=== PATIENT | female | born 1950 | race Caucasian/White ===

== ENCOUNTER 2017-05-25 08:07 | Emergency (ER) | payer OTHER, BC ==
[~2017-05-25] VITALS: Ht 152.4 cm; Wt 108.9 kg
[~2017-05-25 08:07] MED LIST: CARV12.548 PO; GLIP10TA11 PO; GLYB2.5T4 PO; HYDR-1189 PO
[2017-05-25 08:12] VITALS: BP_SYST 183
[2017-05-25 08:45] LABS: BILIRUBIN,URINE NEGATIVE (NEGATIVE); BLOOD, URINE 1+ (NEGATIVE); CLARITY/URINE CLEAR (CLEAR); COLOR,URINE YELLOW (YELLOW); GLUCOSE,URINE 3+ (NEGATIVE); KETONES,URINE NEGATIVE (NEGATIVE); LEUKOCYTE ESTERASE ,URINE NEGATIVE (NEGATIVE); NITRITE, URINE NEGATIVE (NEGATIVE); PROTEIN URINE 2+ (NEGATIVE); UROBILINOGEN,URINE 0.2 (0.2-1.0)
[2017-05-25 09:05] LABS: BACTERIA,URINE FEW /HPF (None Seen); MUCUS,URINE None Seen /LPF (None Seen); RBC,URINE 0-3 /HPF (0-3); WBC,URINE 0-3 /HPF (0-3)
[2017-05-25] MEDS ORDERED: FLUCONAZOLE 100 MG TABLET (DIFLUCAN) PO ONE (09:30)
[2017-05-25 09:43] VITALS: BP_SYST 155
== END 2017-05-25 09:43 | disposition home or self-care (01) ==
LOC: SED 08:07
DX: H11.31 Conjunctival hemorrhage, right eye (principal); N76.0 Acute vaginitis; K59.00 Constipation, unspecified; E11.9 Type 2 diabetes mellitus without complications; I10 Essential (primary) hypertension; Z91.041 Radiographic dye allergy status
CPT/HCPCS: 74000-TC; 81000-TC; 99285

== ENCOUNTER 2017-11-29 09:31 | Outpatient (CLI) | payer OTHER, BC ==
[2017-11-29 10:19] LABS: BASOPHILS # (AUTO) 0.1 K/uL (0.0-0.2); BASOPHILS % (AUTO) 0.8 % (0.0-2.0); EOSINOPHILS # (AUTO) 0.2 K/uL (0.0-0.4); EOSINOPHILS % (AUTO) 3.1 % (0.0-4.0); HEMATOCRIT 44.2 % (36-48); HEMOGLOBIN 14.5 g/dL (12.0-16.0); LYMPHOCYTES # (AUTO) 1.4 K/uL (1.0-5.5); LYMPHOCYTES % (AUTO) 22.4 % (20.5-51.5); MEAN CORPUSCULAR HEMOGLOBIN 28 pg (27-31); MEAN CORPUSCULAR HGB CONC 33 % (32-36); MEAN CORPUSCULAR VOLUME 85 fL (79.0-98.0); MONOCYTES # (AUTO) 0.5 K/uL (0.0-1.0); MONOCYTES % (AUTO) 7.4 % (1.7-9.3); NEUTROPHILS # (AUTO) 4.3 K/uL (1.8-7.7); NEUTROPHILS % (AUTO) 66.3 % (40.0-70.0); PLATELET COUNT (AUTO) 213 K/uL (130-430); RED BLOOD CELL COUNT(AUTO) 5.21 MIL/uL (4.2-6.2); RED CELL DISTRIBUTION WIDTH 12.8 % (9.0-15.0); WHITE BLOOD COUNT (AUTO) 6.5 K/uL (4.8-10.8)
[2017-11-29 10:36] LABS: BILIRUBIN,URINE NEGATIVE (NEGATIVE); BLOOD, URINE 1+ (NEGATIVE); CLARITY/URINE CLEAR (CLEAR); COLOR,URINE YELLOW (YELLOW); GLUCOSE,URINE 3+ (NEGATIVE); KETONES,URINE NEGATIVE (NEGATIVE); LEUKOCYTE ESTERASE ,URINE NEGATIVE (NEGATIVE); NITRITE, URINE NEGATIVE (NEGATIVE); PROTEIN URINE 3+ (NEGATIVE); UROBILINOGEN,URINE 0.2 (0.2-1.0)
[2017-11-29 10:49] LABS: ALBUMIN 2.7 g/dL (3.4-4.8); CALCIUM 10.2 mg/dL (8.4-11.0); CREATININE 0.79 mg/dL (0.55-1.30); POTASSIUM 3.8 mmol/L (3.5-5.1); THYROID STIMULATING HORMONE 1.73 uIu/mL (0.34-4.82); TOTAL BILIRUBIN 0.3 mg/dL (0.0-1.0)
[2017-11-29 10:54] LABS: RBC,URINE 0-3 /HPF (0-3)
[2017-11-29 10:55] LABS: BACTERIA,URINE FEW /HPF (None Seen); MUCUS,URINE None Seen /LPF (None Seen)
[2017-12-01 14:31] LABS: CREATININE, URINE 83.4 mg/dL; MICROALBUMIN URINE RANDOM 2910.9 ug/ml (NOT ESTABLISHED); MICROALBUMIN/CREAT RATIO, UR 3490.3 MG/G CRE (0.0-30.0)
== END 2017-11-29 20:00 | disposition home or self-care (01) ==
LOC: SLB 09:31
PROVIDERS: ATTEND Internal Medicine
DX: I10 Essential (primary) hypertension (principal); E78.5 Hyperlipidemia, unspecified; E11.65 Type 2 diabetes mellitus with hyperglycemia; E66.01 Morbid (severe) obesity due to excess calories; N39.0 Urinary tract infection, site not specified
CPT/HCPCS: 36415; 80053; 80061; 81000-TC; 82043; 82570; 83036; 84443-TC; 85025; 87086

== ENCOUNTER 2019-08-29 11:03 | Emergency (ER) | payer OTHER, MEDICARE ==
[~2019-08-29] VITALS: Ht 152.4 cm; Wt 95.3 kg
[2019-08-29 11:12] VITALS: BP_SYST 166
--- NOTE | 2019-08-29 11:18 | NUR ---
Patient to ER bed 4 to gown for evaluation. Side rails up. Report given to JESS Painting.
--- NOTE | 2019-08-29 11:43 | NUR ---
Patient is awake, alert, and oriented x4. Patient reports that she took immodium last night for diarrhea, this morning she woke up with puffy eyes. Patient presents with swelling around both eyes, no discharge, patient denies any other issues at this time. Addendum: 08/29/19 at 1145 by [email or web address] Patient wears corrective lens at home, she is not wearing them at this time.
--- NOTE | 2019-08-29 12:15 | NUR ---
ER Dr. Humphries at bedside examining patient.
[2019-08-29] MEDS ORDERED: NACL 0.9% 1,000 ML IV ONE ×2 (12:20→12:30)
[2019-08-29] MEDS ORDERED: methylPREDNISolone SOD SUCC/PF 62.5 MG/ML VIAL IVP ONE (12:30)
[2019-08-29 12:54] LABS: BASOPHILS % (AUTO) 0.5 % (0.0-2.0); EOSINOPHILS # (AUTO) 0.2 K/uL (0.0-0.4); EOSINOPHILS % (AUTO) 2.2 % (0.0-4.0); HEMATOCRIT 44.2 % (36-48); HEMOGLOBIN 15.4 g/dL (12.0-16.0); LYMPHOCYTES # (AUTO) 1.6 K/uL (1.0-5.5); LYMPHOCYTES % (AUTO) 19.9 % (20.5-51.5); MEAN CORPUSCULAR HEMOGLOBIN 30 pg (27-31); MEAN CORPUSCULAR HGB CONC 35 % (32-36); MEAN CORPUSCULAR VOLUME 85 fL (79.0-98.0); MONOCYTES # (AUTO) 0.5 K/uL (0.0-1.0); MONOCYTES % (AUTO) 6.1 % (1.7-9.3); NEUTROPHILS # (AUTO) 5.7 K/uL (1.8-7.7); NEUTROPHILS % (AUTO) 71.3 % (40.0-70.0); PLATELET COUNT (AUTO) 228 K/uL (130-430); RED BLOOD CELL COUNT(AUTO) 5.22 MIL/uL (4.2-6.2); RED CELL DISTRIBUTION WIDTH 13.4 % (9.0-15.0)
[2019-08-29 12:57] LABS: BILIRUBIN,URINE NEGATIVE (NEGATIVE); BLOOD, URINE 2+ (NEGATIVE); CLARITY/URINE CLEAR (CLEAR); COLOR,URINE YELLOW (YELLOW); GLUCOSE,URINE 3+ (NEGATIVE); KETONES,URINE NEGATIVE (NEGATIVE); LEUKOCYTE ESTERASE ,URINE NEGATIVE (NEGATIVE); NITRITE, URINE NEGATIVE (NEGATIVE); PH,URINE 6.5 (5.0-8.0); PROTEIN URINE 3+ (NEGATIVE); UROBILINOGEN,URINE 0.2 (0.2-1.0)
[2019-08-29 12:59] LABS: BACTERIA,URINE FEW /HPF (None Seen); HYALINE CASTS, URINE 0-10 /LPF (None Seen)
--- NOTE | 2019-08-29 13:00 | NUR ---
Patient unable to provide stool sample at this time.
[2019-08-29 13:04] LABS: CALCIUM 9.7 mg/dL (8.4-11.0); CREATININE 1.33 mg/dL (0.55-1.30)
[2019-08-29 13:07] LABS: INR 0.9 (0.8-1.2); PROTHROMBIN TIME 9.3 SECS (9.5-12.5)
[2019-08-29 13:10] LABS: ALBUMIN 2.1 g/dL (3.4-4.8); TOTAL BILIRUBIN 0.4 mg/dL (0.0-1.0)
[2019-08-29] MEDS ORDERED: POTASSIUM CHLORIDE 20 MEQ/PKT PACKET PO ONE (14:45)
[2019-08-29 15:42] VITALS: BP_SYST 148
--- NOTE | 2019-08-29 15:42 | NUR ---
Patient given written and verbal discharge instructions and verbalizes understanding. ER MD discussed with patient the results and treatment provided. Patient in stable condition. ID arm band removed. IV catheter removed intact and dressing applied, no active bleeding. Rx of prednisone, lomotil given. Patient educated on pain management and to follow up with PMD. Pain Scale 0/10. Opportunity for questions provided and answered. Medication side effect fact sheet provided.
== END 2019-08-29 15:42 | disposition home or self-care (01) ==
LOC: SED 11:03
DX: T78.3XXA Angioneurotic edema, initial encounter (principal); E11.9 Type 2 diabetes mellitus without complications; K52.9 Noninfective gastroenteritis and colitis, unspecified; Z98.890 Other specified postprocedural states; Z79.899 Other long term (current) drug therapy; Z91.041 Radiographic dye allergy status
CPT/HCPCS: 36415; 80053; 81000; 82150; 83605; 83690; 85025; 85610; 85730; 87040; 96361; 96374; 99283; J2930; J7030

== ENCOUNTER 2020-07-25 09:58 | Outpatient (CLI) | payer OTHER, MEDICARE | END 2020-07-25 20:19 | disposition home or self-care (01) | LOC: SUS 09:58 | PROVIDERS: ATTEND Internal Medicine | DX: R05 Cough (principal) | CPT/HCPCS: 71046-TC; 76770 ==

== ENCOUNTER 2020-08-02 19:53 | Inpatient (IN) | payer OTHER, MEDICARE, SELFPAY ==
[~2020-08-02] VITALS: Ht 152.4 cm; Wt 100.9 kg
[2020-08-02 20:25] VITALS: BP_SYST 203
--- NOTE | 2020-08-02 20:25 | NUR ---
Patient triaged and placed in waiting room. VSS and patient appears in no acute distress at this time. Accompanied by SELF, awaiting available bed, and MD notified of need for MSE.
--- NOTE | 2020-08-02 20:30 | NUR ---
ER at bedside examining patient.
--- NOTE | 2020-08-02 20:31 | NUR ---
Pt presents to the ED for localized abdominal pain x 2 day. Pt reports intermittent SOB and leg swelling. Pt able to speak full sentences. Denies cp, fever chills and cough.
[2020-08-02 21:17] LABS: BASOPHILS # (AUTO) 0.1 K/uL (0.0-0.2); BASOPHILS % (AUTO) 1.9 % (0.0-2.0); EOSINOPHILS # (AUTO) 0.4 K/uL (0.0-0.4); EOSINOPHILS % (AUTO) 6.3 % (0.0-4.0); HEMATOCRIT 33.8 % (36-48); HEMOGLOBIN 11.7 g/dL (12.0-16.0); LYMPHOCYTES # (AUTO) 0.5 K/uL (1.0-5.5); LYMPHOCYTES % (AUTO) 8.4 % (20.5-51.5); MEAN CORPUSCULAR HEMOGLOBIN 30 pg (27-31); MEAN CORPUSCULAR HGB CONC 35 % (32-36); MEAN CORPUSCULAR VOLUME 86 fL (79.0-98.0); MONOCYTES # (AUTO) 0.3 K/uL (0.0-1.0); NEUTROPHILS # (AUTO) 5.1 K/uL (1.8-7.7); NEUTROPHILS % (AUTO) 78.4 % (40.0-70.0); PLATELET COUNT (AUTO) 178 K/uL (130-430); RED BLOOD CELL COUNT(AUTO) 3.94 MIL/uL (4.2-6.2); RED CELL DISTRIBUTION WIDTH 14.2 % (9.0-15.0); WHITE BLOOD COUNT (AUTO) 6.4 K/uL (4.8-10.8)
[2020-08-02 21:33] LABS: ANION GAP 6 (5-15); CALCIUM 8.3 mg/dL (8.4-11.0); CHLORIDE 111 mmol/L (98-107); CREATININE 3.19 mg/dL (0.55-1.30); GLUCOSE 130 mg/dL (70-99); POTASSIUM 3.7 mmol/L (3.5-5.1); SODIUM SERUM 143 mmol/L (136-145); UREA NITROGEN, BLOOD 40 mg/dL (8-21)
[2020-08-02 21:36] LABS: GFR AFRICAN AMERICAN 19 mL/min (>90)
[2020-08-02 21:43] LABS: ALANINE AMINOTRANSFERASE 53 U/L (12-78); ASPARTATE AMINOTRANSFERASE 61 U/L (10-37); BILIRUBIN,DIRECT 0.2 mg/dL (0.0-0.3); LIPASE 179 U/L (73-393); TOTAL BILIRUBIN 0.3 mg/dL (0.0-1.0)
[2020-08-02 22:00] LABS: BILIRUBIN,URINE NEGATIVE (NEGATIVE); BLOOD, URINE 2+ (NEGATIVE); CLARITY/URINE CLEAR (CLEAR); COLOR,URINE YELLOW (YELLOW); GLUCOSE,URINE 1+ (NEGATIVE); KETONES,URINE NEGATIVE (NEGATIVE); LEUKOCYTE ESTERASE ,URINE NEGATIVE (NEGATIVE); NITRITE, URINE NEGATIVE (NEGATIVE); PROTEIN URINE 3+ (NEGATIVE); UROBILINOGEN,URINE 0.2 (0.2-1.0)
[2020-08-02 22:22] LABS: BACTERIA,URINE FEW /HPF (None Seen); RBC,URINE 0-3 /HPF (0-3); WBC,URINE 0-3 /HPF (0-3)
[2020-08-02] MEDS ORDERED: NITROGLYCERIN 1 INCH (GM) OINT. TP ONE ×2 (23:15→23:30)
[2020-08-02] MEDS ORDERED: FUROSEMIDE 40 MG/4 ML VIAL IVP ONE (23:15)
--- NOTE | 2020-08-02 23:50 | NUR ---
Dr Dotson at [facility] evaluating patient.
[2020-08-03] MEDS ORDERED: DEXTROSE 50% JECT 50 ML DISP.SYRIN IVP PRN
[2020-08-03] MEDS ORDERED: NALOXONE HCL 0.4 MG/ML AMP (NARCAN) IVP PRN
[2020-08-03] MEDS ORDERED: HYDROcodone/ACETAMIN 5-325 MG TAB (NORCO/ VICODIN) PO SCH
[2020-08-03] MEDS ORDERED: ONDANSETRON HCL 4 MG/2 ML VIAL IVP PRN (00:15)
[2020-08-03] MEDS ORDERED: traMADol HCL HCL 50 MG TABLET (ULTRAM) PO PRN (00:15)
[2020-08-03] MEDS ORDERED: ACETAMINOPHEN 325 MG TABLET PO PRN (00:15)
--- NOTE | 2020-08-03 00:20 | NUR ---
Pt ambulating, requesting to use bathroom.
--- NOTE | 2020-08-03 00:39 | NUR ---
COVID SWAB SENT TO LAB
[2020-08-03] MEDS ORDERED: CARVEDILOL 6.25 MG TABLET (COREG) ONE (00:54)
[2020-08-03] MEDS: CARVEDILOL 12.5 MG TABLET (COREG) PO SCH ×3 (00:59→22:27)
[2020-08-03] MEDS ORDERED: ASPI-1393 PO (01:12)
[2020-08-03] MEDS ORDERED: ACYC800T PO (01:18)
[2020-08-03] MEDS ORDERED: PRO40 PO (01:18)
[2020-08-03] MEDS ORDERED: GABA-529 PO (01:20)
[2020-08-03] MEDS ORDERED: DOXA4TAB2 PO (01:21)
[2020-08-03] MEDS ORDERED: ATOR20TA64 PO (01:22)
[2020-08-03] MEDS ORDERED: L.RH1CAP PO (01:22)
[2020-08-03 02:20] VITALS: BP_SYST 206
--- NOTE | 2020-08-03 02:39 | NUR ---
ADMISSION Received patient from ER, aox4, ambulatory with steady gait, no sob noted, vitals stable. BP elevated, will recheck shortly. IV line to left ac intact and patent, saline locked, plan of care discussed with patient. Verbalized understanding, compliant. Oriented to room and call light. Fall and safety measures in place.
[2020-08-03] MEDS ORDERED: FLU VACC QS2020-21(65UP)/PF 0.7 ML/SYRINGE I.M. PRN (02:45)
--- NOTE | 2020-08-03 04:16 | NUR ---
RN ROUNDS Patient sleeping, respirations even and unlabored, on room air, call light within reach, fall and safety measures in place.
--- NOTE | 2020-08-03 05:19 | NUR ---
CONSULT: CONSULT CALLED FOR DR. RICE I SPOKE WITH TANOBIA SUPERVISOR LIQUID YEAST #22 REQUESTING CONSULT: DR. FLORENCE REASON FOR CONSULT: CHF CONSULTATION PHONE NUMBER: [phone]
--- NOTE | 2020-08-03 05:24 | NUR ---
CONSULT: CONSULT CALLED FOR DR. JESS RICH IS PARISH WORKER AT THIS MOMENT I SPOKE WITH ULICES OBRIEN REASON FOR CONSULT: CKD REQUESTING CONSULT: DR. FLORENCE COMMERCIAL PROPERTY MANAGER PHONE NUMBER: [phone]
[2020-08-03 06:42] LABS: BASOPHILS # (AUTO) 0.1 K/uL (0.0-0.2); BASOPHILS % (AUTO) 0.7 % (0.0-2.0); EOSINOPHILS # (AUTO) 0.4 K/uL (0.0-0.4); EOSINOPHILS % (AUTO) 5.1 % (0.0-4.0); HEMATOCRIT 30.1 % (36-48); HEMOGLOBIN 10.4 g/dL (12.0-16.0); LYMPHOCYTES # (AUTO) 1.3 K/uL (1.0-5.5); LYMPHOCYTES % (AUTO) 15.9 % (20.5-51.5); MEAN CORPUSCULAR HEMOGLOBIN 30 pg (27-31); MEAN CORPUSCULAR HGB CONC 35 % (32-36); MEAN CORPUSCULAR VOLUME 86 fL (79.0-98.0); MONOCYTES # (AUTO) 0.7 K/uL (0.0-1.0); MONOCYTES % (AUTO) 8.3 % (1.7-9.3); NEUTROPHILS # (AUTO) 5.5 K/uL (1.8-7.7); PLATELET COUNT (AUTO) 162 K/uL (130-430); WHITE BLOOD COUNT (AUTO) 7.9 K/uL (4.8-10.8)
--- NOTE | 2020-08-03 06:42 | NUR ---
RN ROUNDS Patient awake, watching tv, denies any pain or discomfort at this time, blood sugar check this am of 91. IV line to left ac intact and patent, saline locked. Patient needs attended to. Call light within reach, will monitor until report given to am nurse.
[2020-08-03 07:24] LABS: ALANINE AMINOTRANSFERASE 45 U/L (12-78); ALBUMIN 1.7 g/dL (3.4-4.8); ANION GAP 8 (5-15); ASPARTATE AMINOTRANSFERASE 47 U/L (10-37); CALCIUM 8.2 mg/dL (8.4-11.0); CHLORIDE 111 mmol/L (98-107); CREATININE 3.13 mg/dL (0.55-1.30); FREE T4 (FREE THYROXINE) 1.1 ng/dl (0.8-1.5); GLUCOSE 90 mg/dL (70-99); PHOSPHORUS 4.7 mg/dL (2.7-4.5); POTASSIUM 3.6 mmol/L (3.5-5.1); SODIUM SERUM 143 mmol/L (136-145); THYROID STIMULATING HORMONE 2.98 uIu/mL (0.36-3.74); TOTAL BILIRUBIN 0.2 mg/dL (0.0-1.0); UREA NITROGEN, BLOOD 39 mg/dL (8-21)
[2020-08-03 07:26] LABS: GFR AFRICAN AMERICAN 19 mL/min (>90)
[2020-08-03 08:00] VITALS: BP_SYST 194
--- NOTE | 2020-08-03 08:00 | NUR ---
OPENING NOTES PATIENT ALERT AND ORIENT, VERY PLEASANT TO THE STAFF, WITH SWOLLEN BOTH LEGS, REDNESS DUE TO HISTORY OF SHINGLES LAST JANUARY. WITH ELEVATED BLOOD PRESSURE 190/90, ASYMPTOMATIC, WITH CLONIDINE ORDERED.
[2020-08-03 08:13] LABS: CHOLESTEROL 142 mg/dL (<200); HDL CHOLESTEROL 63 mg/dL (>55); LDL CHOLESTEROL 65 mg/dL (<100); TRIGLYCERIDES 88 mg/dL (30-150)
[2020-08-03] MEDS ORDERED: FUROSEMIDE 40 MG TABLET PO SCH (09:00)
[2020-08-03] MEDS ORDERED: CARVEDILOL 12.5 MG TABLET (COREG) ONE (09:05)
[2020-08-03] MEDS: PANTOPRAZOLE SODIUM 40 MG/VIAL (PROTONIX) IVP SCH ×2 (09:09→22:26)
[2020-08-03] MEDS: GABAPENTIN 100 MG CAPSULE PO SCH ×3 (09:12→22:26)
[2020-08-03] MEDS: cloNIDine HCL 0.1 MG TABLET PO PRN ×2 (09:12→17:02)
--- NOTE | 2020-08-03 10:00 | NUR ---
ON 24 HOUR URINE COLLECTION ON 24 HR URINE COLLECTION, URINE COLLECTED, I/0 ACCURATELY.
[2020-08-03 11:36] VITALS: BP_SYST 111
--- NOTE | 2020-08-03 12:00 | NUR ---
BP RE CHECKED 111/55, PATIENT RESTING, MOVED TO 106A CLOSES TO THE BATHROOM.
[2020-08-03 15:44] VITALS: BP_SYST 162
[2020-08-03] MEDS ORDERED: NEPHROVITE, (FOLIC ACID/VITAMIN B COMP W-C 1 TAB) PO ONE (17:00)
--- NOTE | 2020-08-03 17:00 | NUR ---
BP WAS ELEVATED BP 200/110, ASYMPTOMATIC, CLONIDINE GIVEN, DR FLORENCE WAS HERE AND MADE AWARE ABOUT PT'S BP, WILL INCREASE BP MEDS. ABLE TO TALKED TO THE FAMILY VIA PHONE AND GAVE UPDATE ABOUT THE PATIENT.
--- NOTE | 2020-08-03 18:00 | NUR ---
NOTES TOOK DINNER, NO N/V, CONTINUE ON 24 HR URINE COLLECTION DUE AT 2AM, WILL INFORMED INCOMING NURSE ABOUT PT'S BP FOR CONTINOUS MONITORING.
[2020-08-03 19:55] VITALS: BP_SYST 167
--- NOTE | 2020-08-03 20:00 | NUR ---
INITIAL NOTES: PT IS ALERT AND ORIENTED , NOT IN ANY ACUTE DISTRESS ;BP IS ELEVATED , PT RECEIVED CLONIDINE EARLIER ; WILL RECHECK LATER AND WILL GIVE DUE MEDS ; ABLE TO AMBULATE WELL WITH STEADY GAIT ; IV TO L AC , NO S/S OF ANY INFILTRATION NOTICED ; ASSESSMENT DONE ; BED IN LOW AND LOCK POSITION ; CALL DRUMMOND IN REACH ; ENCOURAGED PT TO CALL FOR ANY ASSIST ; PTS URINE IS COLLECTING FOR 24 HR URINE . WILL COLLECT AND WILL FINISH IT BY 0200 .
[2020-08-03] MEDS ORDERED: CARVEDILOL 12.5 MG TABLET (COREG) PO SCH (21:00)
[2020-08-03] MEDS ORDERED: FUROSEMIDE 40 MG TABLET ONE (21:58)
[2020-08-03 22:00] VITALS: BP_SYST 180
[2020-08-03] MEDS ORDERED: FUROSEMIDE 40 MG/4 ML VIAL IVP SCH (22:00)
--- NOTE | 2020-08-03 22:00 | NUR ---
MD ROUNDS: DR COLBERT MADE ROUNDS , NOTICED THAT ORDERED LASIX IV AND ALFORD CATH ; PT REFUSING ALFORD CATH , TRY TO EDUCATE PT ; PT SI STATING THAT DIDN'T TELL HER ANYTHING ; EXPLAINED TO HER WHY SHE NEEDS ALFORD CATH ; STILL PT IS REFUSING IT ; CALLED AND TALKED WITH DR COLBERT WHO WAS IN [facility] ; INFORMED MD THAT PT IS REFUSING ALFORD AND PTS 24 HR URINE WILL FINISH BY 0200. STATED THEN NO NEED TO INSERT ALFORD CATH; ALSO CLARIFIED LASIX ORDER ; STATED HE ORDERED LASIX IV 40 MG ; STATED OK TO GIVE COREG AND COZAAR ORDERED BY DR FLORENCE . NOTIFIED MD PTS BP .
[2020-08-03] MEDS: ENOXAPARIN SODIUM 30 MG/0.3 ML SYRINGE SUBCUT SCH (22:25)
[2020-08-03] MEDS: LOSARTAN POTASSIUM 50 MG TABLET (COZAAR) PO SCH (22:26)
[2020-08-03] MEDS: FUROSEMIDE 40 MG/4 ML VIAL IVP SCH (22:28)
--- NOTE | 2020-08-03 22:30 | NUR ---
MEDICATION ; DUE MEDS GIVEN PER ORDER ; PT IS COMFORTABLE ; NOT IN ANY ACUTE DISTRESS; WILL CONTINUE TO MONITOR .
--- NOTE | 2020-08-04 00:20 | NUR ---
RN NOTES: ASSISTED PT TO RESTROOM ; PT HAD SMALL BM ; ASSISTED PT BACK ; PT IS COMFORTABLE ; WILL CONTINUE TO MONITOR PT .
[2020-08-04 01:25] VITALS: BP_SYST 142
--- NOTE | 2020-08-04 02:00 | NUR ---
24 HR URINE; 24 HR URINE COLLECTED AND SENT TO LAB .
--- NOTE | 2020-08-04 03:51 | NUR ---
RN NOTES: PT IS SLEEPING , NOT IN ANY ACUTE DISTRESS; RESPIRATION IS EVEN AND NON LABORED ;WILL CONTINUE TO MONITOR PT .
--- NOTE | 2020-08-04 05:10 | NUR ---
RN NOTES: PT IS SLEEPING , NOT IN ANY ACUTE DISTRESS; RESPIRATION IS EVEN AND NON LABORED ;WILL CONTINUE TO MONITOR PT .
--- NOTE | 2020-08-04 06:10 | NUR ---
BS: BS 109 , NO INSULIN COVERAGE NEEDED ; PT IS COMFORTABLE ; ALL NEEDS ATTENDED ; ASSITED PT TO BSC ; PT VOIDED ; ASSISTED PT BACK TO BED
[2020-08-04 06:56] LABS: BASOPHILS % (AUTO) 0.4 % (0.0-2.0); EOSINOPHILS # (AUTO) 0.4 K/uL (0.0-0.4); EOSINOPHILS % (AUTO) 6.9 % (0.0-4.0); HEMATOCRIT 26.1 % (36-48); LYMPHOCYTES # (AUTO) 1.5 K/uL (1.0-5.5); LYMPHOCYTES % (AUTO) 28.4 % (20.5-51.5); MEAN CORPUSCULAR HEMOGLOBIN 30 pg (27-31); MEAN CORPUSCULAR HGB CONC 34 % (32-36); MEAN CORPUSCULAR VOLUME 86 fL (79.0-98.0); MONOCYTES # (AUTO) 0.4 K/uL (0.0-1.0); MONOCYTES % (AUTO) 7.2 % (1.7-9.3); NEUTROPHILS # (AUTO) 3.1 K/uL (1.8-7.7); NEUTROPHILS % (AUTO) 57.1 % (40.0-70.0); PLATELET COUNT (AUTO) 139 K/uL (130-430); RED BLOOD CELL COUNT(AUTO) 3.05 MIL/uL (4.2-6.2); RED CELL DISTRIBUTION WIDTH 14.7 % (9.0-15.0); WHITE BLOOD COUNT (AUTO) 5.4 K/uL (4.8-10.8)
--- NOTE | 2020-08-04 07:16 | NUR ---
CLOSING NOTES REPORT GIVEN TO RN, PT IS COMFORTABLE ; NOT IN ANY ACUTE DISTRESS; ALL NEEDS ATTENDED ; NOTIFIED RN ABOUT THE LOW URINE OUTPUT TO MONITOR .
[2020-08-04 07:26] LABS: CALCIUM 7.9 mg/dL (8.4-11.0); CREATININE 3.73 mg/dL (0.55-1.30); POTASSIUM 3.9 mmol/L (3.5-5.1)
[2020-08-04 07:35] LABS: TOTAL IRON BIND. CAPACITY 156 ug/dL (250-450)
[2020-08-04 08:00] VITALS: BP_SYST 179
--- NOTE | 2020-08-04 08:00 | NUR ---
OPENING NOTES PT BILATERAL LOWER LEGS STILL SWOLLEN, WITH REDNESS NOTED, UP BY PHYSICAL THERAPY, ASSISTED TO WALK USING A WALKER, PT EASILY GOT TIRED AFTER P.T. EVALUATION. STILL ON STRICT I/O. FOR CT SCAN OF THE CHEST TODAY.
--- NOTE | 2020-08-04 10:00 | NUR ---
NOTES PATIENT HAD ORAL, PERICARE AND PARTIAL SPONGE BATH, ELEVATED BOTH LEGS WHILE ON BED DUE TO EDEMA. DUE AM MEDS GIVEN.
[2020-08-04] MEDS ORDERED: FUROSEMIDE 40 MG/4 ML VIAL ONE (10:15)
[2020-08-04] MEDS: FUROSEMIDE 40 MG/4 ML VIAL IVP SCH (10:21)
[2020-08-04] MEDS: CARVEDILOL 12.5 MG TABLET (COREG) PO SCH ×2 (10:21→23:07)
[2020-08-04] MEDS: PANTOPRAZOLE SODIUM 40 MG/VIAL (PROTONIX) IVP SCH ×2 (10:21→23:08)
[2020-08-04] MEDS: LOSARTAN POTASSIUM 50 MG TABLET (COZAAR) PO SCH ×2 (10:22→23:07)
[2020-08-04] MEDS: GABAPENTIN 100 MG CAPSULE PO SCH ×3 (10:22→23:06)
[2020-08-04 11:30] VITALS: BP_SYST 169
--- NOTE | 2020-08-04 13:00 | NUR ---
SEEN BY DR FLORENCE SEEN BY DR FLORENCE, FOLLOW UP CT SCAN ORDERED FOR TODAY, MD MADE AWARE THAT BOTH LEGS ARE MORE SWOLLEN THAT YESTERDAY, CONTINUE ON LASIX.
[2020-08-04] MEDS ORDERED: EPOETIN ALFA 10,000 UNITS/ML VIAL SUBCUT ONE (13:30)
--- NOTE | 2020-08-04 15:15 | NUR ---
NOTES BACK FROM CT SCAN.
[2020-08-04] MEDS: NEPHROVITE, (FOLIC ACID/VITAMIN B COMP W-C 1 TAB) PO SCH (15:29)
[2020-08-04] MEDS: cloNIDine HCL 0.1 MG TABLET PO PRN ×2 (15:39→23:10)
[2020-08-04 15:42] VITALS: BP_SYST 169
--- NOTE | 2020-08-04 16:16 | NUR ---
Dietitian Recommendations * Recommend continuing CCHO, renal diet * RD will provide diabetic and renal diet medical nutrition therapy prior to D/C ELENA RD Please refer to Nutrition Assessment for details. Addendum: 08/04/20 at [address] Amended: Links added.
--- NOTE | 2020-08-04 17:15 | NUR ---
ALFORD CATH: # 16 FR Alford catheter with 10 cc bulb inserted with use of sterile technique. Bulb inflated with 10 cc sterile water. Immediate return of 50CC cc urine noted. Bedside drainage bag placed below level of bladder. Urine sample collected and sent to lab. Pt tolerated procedure.
[2020-08-04] MEDS: ALBUMIN HUMAN 25% 50 ML IV SCH ×2 (17:27→23:06)
[2020-08-04] MEDS: FUROSEMIDE 100 MG in D5W 90 ML IV SCH (17:28)
--- NOTE | 2020-08-04 19:00 | NUR ---
LASIX DRIP SEEN BY DR RICE AT 4PM, STARTED ON LASIX DRIP, WILL CONTINUE TO MONITOR.
[2020-08-04 20:00] VITALS: BP_SYST 165
[2020-08-04 20:57] LABS: BILIRUBIN,URINE NEGATIVE (NEGATIVE); BLOOD, URINE 1+ (NEGATIVE); COLOR,URINE YELLOW (YELLOW); GLUCOSE,URINE TRACE (NEGATIVE); KETONES,URINE NEGATIVE (NEGATIVE); LEUKOCYTE ESTERASE ,URINE NEGATIVE (NEGATIVE); NITRITE, URINE NEGATIVE (NEGATIVE); PROTEIN URINE 3+ (NEGATIVE); UROBILINOGEN,URINE 0.2 (0.2-1.0)
[2020-08-04 21:12] LABS: CLARITY/URINE HAZY (CLEAR)
[2020-08-04 21:44] LABS: BACTERIA,URINE MODERATE /HPF (None Seen)
[2020-08-04 21:45] LABS: COARSE GRANULAR CASTS,URINE 0-10 /LPF (None Seen); MUCUS,URINE None Seen /LPF (None Seen); URINE AMORPHOUS URATE 4+ /HPF (None Seen)
[2020-08-04] MEDS: ENOXAPARIN SODIUM 30 MG/0.3 ML SYRINGE SUBCUT SCH (23:05)
[2020-08-05] VITALS: BP_SYST 161
[2020-08-05] MEDS: ALBUMIN HUMAN 25% 50 ML IV SCH ×3 (05:15→23:00)
--- NOTE | 2020-08-05 06:30 | NUR ---
CLOSING NOTE PATIENT IN BED SLEEPING WITH NO SIGNS OF DISTRESS NOTED. ALFORD CATHETER PATENT AND DRAINING TO GRAVITY WITH 1750ML URINE OUTPUT. IV SITE PATENT AND INTACT WITH LASIX DRIP INFUSING WITH NO SIGNS OF INFILTRATION NOTED. PATIENT TOLERATING. PATIENT TOLERATED ALL ACTIVITY THROUGHOUT SHIFT. ABLE TO GET OUT OF BED TO COMMODE STEADILY. SAFETY PRECAUTIONS IN PLACE. BED LOCKED IN LOW POSITION WITH CALL LIGHT IN REACH. WILL CONTINUE TO MONITOR UNTIL ENDORSED TO AM NURSE. ALBUMIN 3 OF 3 ADMINISTERED AND PATIENT TOLERATED WELL.
[2020-08-05 06:54] LABS: BASOPHILS # (AUTO) 0.1 K/uL (0.0-0.2); BASOPHILS % (AUTO) 0.9 % (0.0-2.0); EOSINOPHILS # (AUTO) 0.4 K/uL (0.0-0.4); EOSINOPHILS % (AUTO) 6.1 % (0.0-4.0); HEMATOCRIT 25.3 % (36-48); HEMOGLOBIN 8.7 g/dL (12.0-16.0); LYMPHOCYTES # (AUTO) 1.5 K/uL (1.0-5.5); LYMPHOCYTES % (AUTO) 24.9 % (20.5-51.5); MEAN CORPUSCULAR HEMOGLOBIN 30 pg (27-31); MEAN CORPUSCULAR HGB CONC 34 % (32-36); MEAN CORPUSCULAR VOLUME 86 fL (79.0-98.0); MONOCYTES # (AUTO) 0.5 K/uL (0.0-1.0); NEUTROPHILS # (AUTO) 3.5 K/uL (1.8-7.7); NEUTROPHILS % (AUTO) 59.1 % (40.0-70.0); PLATELET COUNT (AUTO) 133 K/uL (130-430); RED BLOOD CELL COUNT(AUTO) 2.93 MIL/uL (4.2-6.2); RED CELL DISTRIBUTION WIDTH 14.2 % (9.0-15.0); WHITE BLOOD COUNT (AUTO) 5.9 K/uL (4.8-10.8)
[2020-08-05 07:06] LABS: CALCIUM 8.6 mg/dL (8.4-11.0); CREATININE 3.83 mg/dL (0.55-1.30); PHOSPHORUS 5.7 mg/dL (2.7-4.5); TOTAL BILIRUBIN 0.2 mg/dL (0.0-1.0); URIC ACID 7.3 mg/dL (2.4-7.0)
[2020-08-05 08:00] VITALS: BP_SYST 165
--- NOTE | 2020-08-05 08:00 | NUR ---
INITIAL NOTE PT AWAKE, RESTING IN BED. PT ON ROOM AIR, DENIES ANY SOB OR DISCOMFORT AT THIS TIME. IV LASIX DRIP INFUSING RITH LEFT AC. BILATERAL EXTREMITY SWELLING NOTED, WITH PLUS 2 EDEMA. EDUCATED PT ON FLUID RESTRICTION. PT VERBALIZED UNDERSTANDING, PROVIDED PT WITH CUP OF ICE REQUESTED. SCHEDULED MEDICATIONS ADMINISTERED AT THIS TIME. ASSISTED PT ONTO BSC, PT HAD SMALL BM, FORMED. ASSISTED PT BACK INTO BED, NO ACUTE DISTRESS NOTED. CALL LIGHT WITHIN REACH, BED IN LOW AND LOCKED POSITION WITH BED ALARM ON.
[2020-08-05] MEDS: PANTOPRAZOLE SODIUM 40 MG/VIAL (PROTONIX) IVP SCH ×2 (08:34→23:00)
[2020-08-05] MEDS: LOSARTAN POTASSIUM 50 MG TABLET (COZAAR) PO SCH ×2 (08:35→21:00)
[2020-08-05] MEDS: CARVEDILOL 12.5 MG TABLET (COREG) PO SCH ×2 (08:35→21:00)
[2020-08-05] MEDS: GABAPENTIN 100 MG CAPSULE PO SCH ×3 (08:36→21:00)
[2020-08-05] MEDS ORDERED: LACTOBACILLUS RHAMNOSUS GG 1 CAP CAPSULE PO ONE (10:00)
[2020-08-05] MEDS ORDERED: CHOLECALCIFEROL (VITAMIN D3) 2,000 UNIT TABLET PO ONE (10:00)
[2020-08-05] MEDS: EPOETIN ALFA 10,000 UNITS/ML VIAL SUBCUT SCH (10:49)
[2020-08-05] MEDS: cefTRIAXone 1 GM in D5W 50 ML IV SCH (10:50)
[2020-08-05] MEDS: LEVOFLOXACIN 250 MG/D5W 50 ML IV SCH (10:51)
[2020-08-05] MEDS: NEPHROVITE, (FOLIC ACID/VITAMIN B COMP W-C 1 TAB) PO SCH (10:52)
[2020-08-05 12:00] VITALS: BP_SYST 181
--- NOTE | 2020-08-05 12:00 | NUR ---
RN ROUNDS STARTED NEW IV LINE ON RIGHT AC, IV ABX INFUSING TO RIGHT AC. PT TOLERATING WELL. ASSISTED PT ONTO EDGE OF BED TO EAT LUNCH. WILL CONTINUE TO MONITOR.
[2020-08-05] MEDS: cloNIDine HCL 0.1 MG TABLET PO PRN (13:45)
[2020-08-05] MEDS ORDERED: DOXAZOSIN MESYLATE 2 MG TABLET PO ONE (14:15)
[2020-08-05 16:00] VITALS: BP_SYST 167
[2020-08-05] MEDS: FUROSEMIDE 100 MG in D5W 90 ML IV SCH (16:54)
--- NOTE | 2020-08-05 18:18 | NUR ---
P.T. NOTES D/C FROM P.T. AFTER TX, ENDORSED TO NURSING; REFER TO D/C SUMMARY FOR DETAILS.
--- NOTE | 2020-08-05 18:56 | NUR ---
CLOSING NOTE ASSISTED PT ONTO BSC, NO BM, PT PASSED GAS. ASSISTED BACK INTO BED. PT DENIES ANY SOB OR DISCOMFORT AT THIS TIME. IV LASIX DRIP INFUSING TO LEFT AC. RIGHT AC SALINE LOCKED. ALFORD DRAINING TO GRAVITY. ALL NEEDS MET THROUGHOUT SHIFT. CALL LIGHT WITHIN REACH, BED IN LOW AND LOCKED POSITION WITH BED ALARM ON. WILL CONTINUE TO MONITOR UNTIL PT CARE IS ENDORSED TO HORSE BREEDER RN.
[2020-08-05 20:00] VITALS: BP_SYST 195
[2020-08-05 20:58] LABS: CREATININE 3.73 mg/dL (0.55-1.30)
[2020-08-05] MEDS: DOXAZOSIN MESYLATE 2 MG TABLET PO SCH (21:00)
[2020-08-05] MEDS: LACTOBACILLUS RHAMNOSUS GG 1 CAP CAPSULE PO SCH (21:00)
[2020-08-05] MEDS ORDERED: ALBUMIN HUMAN 25% 50 ML IV ONE (22:19)
[2020-08-05] MEDS ORDERED: LACTOBACILLUS RHAMNOSUS GG 1 CAP CAPSULE ONE (22:27)
[2020-08-05] MEDS: ENOXAPARIN SODIUM 30 MG/0.3 ML SYRINGE SUBCUT SCH (23:19)
[2020-08-06 04:00] VITALS: BP_SYST 170
[2020-08-06] MEDS ORDERED: ALBUMIN HUMAN 25% 50 ML IV ONE (06:05)
[2020-08-06] MEDS: ALBUMIN HUMAN 25% 50 ML IV SCH (06:07)
[2020-08-06 06:41] LABS: BASOPHILS # (AUTO) 0.1 K/uL (0.0-0.2); EOSINOPHILS # (AUTO) 0.4 K/uL (0.0-0.4); HEMATOCRIT 27.2 % (36-48); HEMOGLOBIN 9.2 g/dL (12.0-16.0); LYMPHOCYTES # (AUTO) 1.2 K/uL (1.0-5.5); LYMPHOCYTES % (AUTO) 20.9 % (20.5-51.5); MEAN CORPUSCULAR HEMOGLOBIN 30 pg (27-31); MEAN CORPUSCULAR HGB CONC 34 % (32-36); MEAN CORPUSCULAR VOLUME 87 fL (79.0-98.0); MONOCYTES # (AUTO) 0.5 K/uL (0.0-1.0); MONOCYTES % (AUTO) 9.1 % (1.7-9.3); NEUTROPHILS # (AUTO) 3.7 K/uL (1.8-7.7); PLATELET COUNT (AUTO) 133 K/uL (130-430); RED BLOOD CELL COUNT(AUTO) 3.12 MIL/uL (4.2-6.2); RED CELL DISTRIBUTION WIDTH 14.3 % (9.0-15.0); WHITE BLOOD COUNT (AUTO) 5.9 K/uL (4.8-10.8)
[2020-08-06] MEDS ORDERED: POTASSIUM CHLORIDE 20 MEQ TAB.PRT.SR PO PRN (07:00)
[2020-08-06 07:13] LABS: ALBUMIN 2.3 g/dL (3.4-4.8); CALCIUM 8.7 mg/dL (8.4-11.0); CREATININE 3.68 mg/dL (0.55-1.30); POTASSIUM 3.5 mmol/L (3.5-5.1); TOTAL BILIRUBIN 0.2 mg/dL (0.0-1.0)
[2020-08-06] MEDS ORDERED: LACTOBACILLUS RHAMNOSUS GG 1 CAP CAPSULE ONE (08:15)
[2020-08-06 08:19] VITALS: BP_SYST 170
[2020-08-06] MEDS: PANTOPRAZOLE SODIUM 40 MG/VIAL (PROTONIX) IVP SCH ×2 (08:27→20:19)
[2020-08-06] MEDS: DOXAZOSIN MESYLATE 2 MG TABLET PO SCH ×2 (08:28→20:20)
[2020-08-06] MEDS: LOSARTAN POTASSIUM 50 MG TABLET (COZAAR) PO SCH ×2 (08:29→20:21)
[2020-08-06] MEDS: CARVEDILOL 12.5 MG TABLET (COREG) PO SCH ×2 (08:29→20:22)
[2020-08-06] MEDS: GABAPENTIN 100 MG CAPSULE PO SCH ×3 (08:31→20:22)
[2020-08-06] MEDS: CHOLECALCIFEROL (VITAMIN D3) 2,000 UNIT TABLET PO SCH (08:31)
[2020-08-06] MEDS: LACTOBACILLUS RHAMNOSUS GG 1 CAP CAPSULE PO SCH ×2 (09:00→20:19)
--- NOTE | 2020-08-06 09:05 | NUR ---
Opening Note received bedside SBAR report from endorsing RN, patient resting in bed, respirations even and unlabored, no acute distress noted, educated patient on use of call light and asked to call for assistance, patient verbalized understanding, call light in reach, bed in low and locked position, bed alarm on.
[2020-08-06] MEDS: cefTRIAXone 1 GM in D5W 50 ML IV SCH (09:30)
[2020-08-06] MEDS: NEPHROVITE, (FOLIC ACID/VITAMIN B COMP W-C 1 TAB) PO SCH (09:31)
--- NOTE | 2020-08-06 11:05 | NUR ---
Skin Care patient requesting assistance with skin care to lower extremities, per patient Dr. Dotson would like moisturizer applied to lower extremities due to dryness, assisted patient to apply moisturizer to lower extremities, patient tolerated well, patient denies any pain, patient resting in bed.
--- NOTE | 2020-08-06 12:40 | NUR ---
Lunch patient sitting up in bed eating lunch, tolerating well, patient denies any nausea or vomiting.
[2020-08-06 12:53] VITALS: BP_SYST 171
[2020-08-06 12:54] LABS: CREATININE CLEARANCE,URINE 4.6 ml/min (80-120); CREATININE,URINE 33.9 MG/DL (30-125)
[2020-08-06 13:01] LABS: TPROTEIN U,24HR 3137.4 mg/24HR (0-130)
[2020-08-06] MEDS: cloNIDine HCL 0.1 MG TABLET PO PRN (13:04)
--- NOTE | 2020-08-06 14:45 | NUR ---
RN Rounds patient sleeping in bed, respirations even and unlabored, no acute distress noted.
[2020-08-06] MEDS: FUROSEMIDE 100 MG in D5W 90 ML IV SCH (15:52)
[2020-08-06 16:00] VITALS: BP_SYST 171
--- NOTE | 2020-08-06 16:23 | NUR ---
Spoke with physician spoke with Dr. Mcneill, informed him of recent BP 171/72, HR 57, informed him of medications that were administered including catapres, coreg, and cozaar, informed him that patient is currently on lasix drip at 5ml/hr, new medication orders received, verified with read back, per Dr. Mcneill patient has nephrotic syndrome and BP should be managed by behavioral health therapist in the future.
[2020-08-06] MEDS ORDERED: hydrALAZINE HCL 20 MG/ML VIAL IVP PRN (16:30)
[2020-08-06] MEDS: hydrALAZINE HCL 20 MG/ML VIAL IVP PRN (16:53)
--- NOTE | 2020-08-06 19:26 | NUR ---
Closing Note bedside SBAR report given to receiving RN, patient resting in bed, respirations even and unlabored on room air, no acute distress noted, lasix drip infusing well to left AC, no acute distress noted, room close to nurses station, educated patient on use of call light and asked to call for assistance, patient verbalized understanding, call light in reach, bed in low and locked position, bed alarm on.
--- NOTE | 2020-08-06 19:30 | NUR ---
OPENING NOTE PT AWAKE, RESTING IN BED, AAOX4. PT ON ROOM AIR, DENIES ANY SOB OR DISCOMFORT AT THIS TIME. IV LASIX DRIP INFUSING TO LEFT AC. BILATERAL EXTREMITY SWELLING NOTED, WITH PLUS 1 EDEMA. EDUCATED PT ON FLUID RESTRICTION. PT VERBALIZED UNDERSTANDING. SAFETY AND FALL PRECAUTIONS ARE IN PLACE. CALL LIGHT WITHIN REACH, BED IN LOW AND LOCKED POSITION WITH BED ALARM ON. WILL MONITOR.
[2020-08-06 20:00] VITALS: BP_SYST 159
[2020-08-06] MEDS: ENOXAPARIN SODIUM 30 MG/0.3 ML SYRINGE SUBCUT SCH (20:24)
--- NOTE | 2020-08-06 22:00 | NUR ---
RN ROUNDS Patient sleeping, respirations even and unlabored, on room air, call light within reach, fall and safety measures in place.
[2020-08-07 00:30] VITALS: BP_SYST 148
--- NOTE | 2020-08-07 00:30 | NUR ---
VITALS VITAL SIGNS TAKEN. VSS. NO S/S OF DISTRESS. SAFETY MAINTAINED. WILL MONITOR.
--- NOTE | 2020-08-07 03:00 | NUR ---
RN ROUNDS Patient sleeping, respirations even and unlabored, on room air, call light within reach, fall and safety measures in place.
[2020-08-07 06:52] LABS: BASOPHILS # (AUTO) 0.1 K/uL (0.0-0.2); BASOPHILS % (AUTO) 0.8 % (0.0-2.0); EOSINOPHILS # (AUTO) 0.4 K/uL (0.0-0.4); EOSINOPHILS % (AUTO) 6.1 % (0.0-4.0); HEMATOCRIT 28.1 % (36-48); HEMOGLOBIN 9.6 g/dL (12.0-16.0); MEAN CORPUSCULAR HEMOGLOBIN 30 pg (27-31); MEAN CORPUSCULAR HGB CONC 34 % (32-36); MEAN CORPUSCULAR VOLUME 87 fL (79.0-98.0); MONOCYTES # (AUTO) 0.5 K/uL (0.0-1.0); MONOCYTES % (AUTO) 8.3 % (1.7-9.3); NEUTROPHILS # (AUTO) 4.3 K/uL (1.8-7.7); NEUTROPHILS % (AUTO) 68.8 % (40.0-70.0); PLATELET COUNT (AUTO) 142 K/uL (130-430); RED BLOOD CELL COUNT(AUTO) 3.23 MIL/uL (4.2-6.2); RED CELL DISTRIBUTION WIDTH 14.7 % (9.0-15.0); WHITE BLOOD COUNT (AUTO) 6.2 K/uL (4.8-10.8)
--- NOTE | 2020-08-07 06:58 | NUR ---
CLOSING NOTE PT ON ROOM AIR, DENIES ANY SOB OR DISCOMFORT AT THIS TIME. IV LASIX DRIP INFUSING TO LEFT AC. BILATERAL EXTREMITY EDEMA NOTED. SAFETY AND FALL PRECAUTIONS ARE IN PLACE. CALL LIGHT WITHIN REACH, BED IN LOW AND LOCKED POSITION WITH BED ALARM ON. WILL ENDORSE TO DAY SHIFT RN.
[2020-08-07 06:59] LABS: ALBUMIN 2.3 g/dL (3.4-4.8); CREATININE 3.81 mg/dL (0.55-1.30); POTASSIUM 3.6 mmol/L (3.5-5.1); TOTAL BILIRUBIN 0.2 mg/dL (0.0-1.0)
--- NOTE | 2020-08-07 07:12 | NUR ---
Opening Note received bedside SBAR report from barrel repairer RN, patient resting in bed, respirations even and unlabored on room air, no acute distress noted, mckeon catheter draining to gravity, lasix drip at 5ml/hr, educated patient on use of call light and asked to call for assistance, patient verbalized understanding, call light in reach, bed in low and locked position, bed alarm on.
[2020-08-07] MEDS: PANTOPRAZOLE SODIUM 40 MG/VIAL (PROTONIX) IVP SCH ×2 (08:42→20:49)
[2020-08-07] MEDS: NEPHROVITE, (FOLIC ACID/VITAMIN B COMP W-C 1 TAB) PO SCH (08:42)
[2020-08-07] MEDS: LACTOBACILLUS RHAMNOSUS GG 1 CAP CAPSULE PO SCH ×2 (08:43→20:47)
[2020-08-07] MEDS: CHOLECALCIFEROL (VITAMIN D3) 2,000 UNIT TABLET PO SCH (08:43)
[2020-08-07] MEDS: GABAPENTIN 100 MG CAPSULE PO SCH ×3 (08:43→20:47)
[2020-08-07] MEDS: CARVEDILOL 12.5 MG TABLET (COREG) PO SCH ×2 (08:43→20:48)
[2020-08-07] MEDS: LOSARTAN POTASSIUM 50 MG TABLET (COZAAR) PO SCH ×2 (08:43→20:47)
[2020-08-07] MEDS: cefTRIAXone 1 GM in D5W 50 ML IV SCH (08:44)
[2020-08-07] MEDS: DOXAZOSIN MESYLATE 2 MG TABLET PO SCH ×2 (08:44→20:47)
[2020-08-07 09:03] VITALS: BP_SYST 189
--- NOTE | 2020-08-07 09:50 | NUR ---
RN Rounds patient resting in bed, respirations even and unlabored on room air, IV lasix drip infusing well, no redness or swelling noted at IV site, patient denies any pain.
[2020-08-07] MEDS: LEVOFLOXACIN 250 MG/D5W 50 ML IV SCH (09:56)
[2020-08-07] MEDS: cloNIDine HCL 0.1 MG TABLET PO PRN ×2 (11:38→23:07)
[2020-08-07] MEDS ORDERED: FLUCONAZOLE 100 MG TABLET (DIFLUCAN) PO ONE (11:45)
--- NOTE | 2020-08-07 12:05 | NUR ---
Lunch patient sitting up in bed eating lunch, tolerating well, no acute distress noted, patient denies any nausea or vomiting.
[2020-08-07 12:06] VITALS: BP_SYST 163
--- NOTE | 2020-08-07 13:31 | NUR ---
Hygiene CATERPILLAR TRACTOR OPERATOR at bedside assisting patient with hygiene needs, linen and gown changed, patient tolerated well.
[2020-08-07 15:25] VITALS: BP_SYST 137
--- NOTE | 2020-08-07 15:47 | NUR ---
RN Rounds patient resting in bed, respirations even and unlabored on room air, patient denies any pain, no acute distress noted.
[2020-08-07] MEDS: FUROSEMIDE 100 MG in D5W 90 ML IV SCH (17:04)
--- NOTE | 2020-08-07 17:25 | NUR ---
RN Rounds patient sitting up in bed eating dinner, tolerating well, patient denies any nausea or vomiting, no acute distress noted.
--- NOTE | 2020-08-07 19:06 | NUR ---
Closing Note bedside SBAR report given to receiving RN, patient resting in bed, respirations even and unlabored on room air, no acute distress noted, mckeon catheter draining to gravity, educated patient on use of call light and asked to call for assistance, patient verbalized understanding, call light in reach, bed in low and locked position, bed alarm on, care endorsed to cow tender RN.
--- NOTE | 2020-08-07 19:30 | NUR ---
OPENING NOTE PT AWAKE, RESTING IN BED, AAOX4. PT ON ROOM AIR, DENIES ANY SOB OR DISCOMFORT AT THIS TIME. IV LASIX DRIP INFUSING TO LEFT AC. BILATERAL EXTREMITY SWELLING NOTED, WITH PLUS 2 EDEMA. EDUCATED PT ON FLUID RESTRICTION. PT VERBALIZED UNDERSTANDING. SAFETY AND FALL PRECAUTIONS ARE IN PLACE. CALL LIGHT WITHIN REACH, BED IN LOW AND LOCKED POSITION WITH BED ALARM ON. WILL MONITOR.
[2020-08-07 20:00] VITALS: BP_SYST 180
[2020-08-07] MEDS: ENOXAPARIN SODIUM 30 MG/0.3 ML SYRINGE SUBCUT SCH (20:48)
--- NOTE | 2020-08-07 21:07 | NUR ---
MEDICATION PASS SCHEDULED MEDICATIONS ADMINISTERED ORDERED. BLOOD SUGAR OF 150, NO INSULIN INDICATED PER SLIDING SCALE. SAFETY PRECAUTIONS MAINTAINED. WILL MONITOR.
[2020-08-07 23:07] VITALS: BP_SYST 200
--- NOTE | 2020-08-07 23:07 | NUR ---
HIGH BP: PT BLOOD PRESSURE NOTED TO BE 200/86. PRN CATAPRES GIVEN ORDERED. SAFETY PRECAUTIONS MAINTAINED. WILL MONITOR.
[2020-08-08] MEDS: hydrALAZINE HCL 20 MG/ML VIAL IVP PRN (00:26)
--- NOTE | 2020-08-08 00:26 | NUR ---
PRN BLOOD PRESSURE MED: PT BLOOD PRESSURE NOTED TO STILL BE HIGH AT 198/78. APRESOLINE IV GIVEN ORDERED PRN. MEDICATION ACTION AND POTENTIAL SIDE EFFECTS EXPLAINED TO PT. WILL RE-CHECK BLOOD PRESSURE IN 30 MINUTES. SAFETY MAINTAINED.
[2020-08-08 00:56] VITALS: BP_SYST 142
--- NOTE | 2020-08-08 02:31 | NUR ---
RN ROUNDS Patient sleeping, respirations even and unlabored, on room air, call light within reach, fall and safety measures in place.
--- NOTE | 2020-08-08 04:07 | NUR ---
RN ROUNDS Patient sleeping, respirations even and unlabored, on room air, call light within reach, fall and safety measures in place.
[2020-08-08 06:54] LABS: BASOPHILS % (AUTO) 0.8 % (0.0-2.0); EOSINOPHILS # (AUTO) 0.4 K/uL (0.0-0.4); HEMATOCRIT 27.7 % (36-48); HEMOGLOBIN 9.3 g/dL (12.0-16.0); LYMPHOCYTES # (AUTO) 1.1 K/uL (1.0-5.5); LYMPHOCYTES % (AUTO) 18.2 % (20.5-51.5); MEAN CORPUSCULAR HEMOGLOBIN 30 pg (27-31); MEAN CORPUSCULAR HGB CONC 34 % (32-36); MEAN CORPUSCULAR VOLUME 88 fL (79.0-98.0); MONOCYTES # (AUTO) 0.6 K/uL (0.0-1.0); MONOCYTES % (AUTO) 8.8 % (1.7-9.3); NEUTROPHILS # (AUTO) 4.2 K/uL (1.8-7.7); NEUTROPHILS % (AUTO) 66.2 % (40.0-70.0); PLATELET COUNT (AUTO) 143 K/uL (130-430); RED BLOOD CELL COUNT(AUTO) 3.17 MIL/uL (4.2-6.2); RED CELL DISTRIBUTION WIDTH 14.7 % (9.0-15.0); WHITE BLOOD COUNT (AUTO) 6.3 K/uL (4.8-10.8)
[2020-08-08 07:50] LABS: CREATININE 4.33 mg/dL (0.55-1.30); PHOSPHORUS 5.2 mg/dL (2.7-4.5); POTASSIUM 3.4 mmol/L (3.5-5.1)
[2020-08-08 08:04] VITALS: BP_SYST 175
--- NOTE | 2020-08-08 08:16 | NUR ---
opening notes jhand off at bedside. patient sitting at the edge of the bed. coplaining " I do not feel right ". Offered to assist back to bed but patient would like to try do bowel movement. Patient was assisted back to bed . No BM. plan of care discussed. patient verbalized understanding.
[2020-08-08 08:47] VITALS: BP_SYST 144
[2020-08-08] MEDS ORDERED: FLUCONAZOLE 100 MG TABLET (DIFLUCAN) PO SCH (09:00)
[2020-08-08] MEDS: LACTOBACILLUS RHAMNOSUS GG 1 CAP CAPSULE PO SCH ×2 (09:04→21:00)
[2020-08-08] MEDS: NEPHROVITE, (FOLIC ACID/VITAMIN B COMP W-C 1 TAB) PO SCH (09:04)
[2020-08-08] MEDS: GABAPENTIN 100 MG CAPSULE PO SCH ×3 (09:04→21:00)
[2020-08-08] MEDS: DOXAZOSIN MESYLATE 2 MG TABLET PO SCH ×2 (09:05→21:00)
[2020-08-08] MEDS: CHOLECALCIFEROL (VITAMIN D3) 2,000 UNIT TABLET PO SCH (09:06)
[2020-08-08] MEDS: LOSARTAN POTASSIUM 50 MG TABLET (COZAAR) PO SCH (09:06)
[2020-08-08] MEDS: CARVEDILOL 12.5 MG TABLET (COREG) PO SCH ×2 (09:06→21:00)
[2020-08-08] MEDS: PANTOPRAZOLE SODIUM 40 MG/VIAL (PROTONIX) IVP SCH ×2 (09:07→20:58)
[2020-08-08] MEDS: EPOETIN ALFA 10,000 UNITS/ML VIAL SUBCUT SCH (09:07)
[2020-08-08] MEDS: cefTRIAXone 1 GM in D5W 50 ML IV SCH (10:11)
[2020-08-08] MEDS: FUROSEMIDE 100 MG in D5W 90 ML IV SCH (10:11)
[2020-08-08 11:31] VITALS: BP_SYST 159
--- NOTE | 2020-08-08 12:04 | NUR ---
Discharge Planning: DCP faxed pt referral to [facility] (f [phone] p [phone]) DCP to follow up. Addendum: 08/08/20 at 1240 by Shirley Elise DP William Birmingham at [facility] (f [phone] p [phone]) pt accepted. DCP left message for nurse with med tech
--- NOTE | 2020-08-08 12:55 | NUR ---
Patient awake and alert, sitting in bed. Not showing any signs of distress, denies pain. All needs were met. Bed is low, locked, 2 side rails are up and call light is within reach. Addendum: 08/08/20 at 1644 by Venecia Rubio RN wrong patient, please disregard
--- NOTE | 2020-08-08 14:12 | NUR ---
Patient awake and alert, sitting in bed. Not showing any signs of distress, denies pain. All needs were met. Bed is low, locked, 2 side rails are up and call light is within reach. Addendum: 08/08/20 at 1653 by Venecia Rubio RN wrong patient, please disregard
--- NOTE | 2020-08-08 14:45 | NUR ---
Patient was endorsed to me by Larisa MERCADO, I will begin care of patient. She is stable and sleeping, not showing any signs of distress.
--- NOTE | 2020-08-08 14:56 | NUR ---
Discharge Planning Dr Dotson here to see patient. [facility] discontinues as ordered. Patient was informed by that discharge will be home 08/09/20. Patient would like her mckeon catheter removed before my shift ends
[2020-08-08 15:33] VITALS: BP_SYST 149
--- NOTE | 2020-08-08 16:40 | NUR ---
Patient awake and alert, sitting in bed. Not showing any signs of distress, denies pain. All needs were met. Bed is low, locked, 2 side rails are up and call light is within reach.
--- NOTE | 2020-08-08 19:00 | NUR ---
Closing notes: Patient is awake, alert and oriented, not showing any signs of distress. IV line is patent and SL, denies pain at this time. Patient is able to use bedside commode without any issues. Lasix drip was stopped today per . Patients needs were met during shift. I will give report to pm nurse. Bed is low, locked, 2 side rails are up and call light is within reach.
[2020-08-08 20:00] VITALS: BP_SYST 145
[2020-08-08] MEDS: INSULIN REGULAR, HUMAN 100 UNITS/ML, 10 ML VIAL (humuLIN R) SUBCUT PRN (21:04)
[2020-08-08] MEDS: ENOXAPARIN SODIUM 30 MG/0.3 ML SYRINGE SUBCUT SCH (21:05)
--- NOTE | 2020-08-08 21:15 | NUR ---
Meds, Accucheck Due meds given, she swallowed pills with water. Accucheck done w/ result of 213 mg/dL and covered w/ Regular insulin per sliding scale.
[2020-08-09 00:04] VITALS: BP_SYST 153
[2020-08-09 06:51] LABS: BASOPHILS % (AUTO) 0.7 % (0.0-2.0); EOSINOPHILS # (AUTO) 0.3 K/uL (0.0-0.4); EOSINOPHILS % (AUTO) 5.3 % (0.0-4.0); HEMATOCRIT 27.8 % (36-48); HEMOGLOBIN 9.7 g/dL (12.0-16.0); LYMPHOCYTES # (AUTO) 1.2 K/uL (1.0-5.5); LYMPHOCYTES % (AUTO) 18.4 % (20.5-51.5); MEAN CORPUSCULAR HEMOGLOBIN 30 pg (27-31); MEAN CORPUSCULAR HGB CONC 35 % (32-36); MEAN CORPUSCULAR VOLUME 86 fL (79.0-98.0); MONOCYTES # (AUTO) 0.6 K/uL (0.0-1.0); MONOCYTES % (AUTO) 9.6 % (1.7-9.3); NEUTROPHILS # (AUTO) 4.3 K/uL (1.8-7.7); PLATELET COUNT (AUTO) 151 K/uL (130-430); RED BLOOD CELL COUNT(AUTO) 3.22 MIL/uL (4.2-6.2); RED CELL DISTRIBUTION WIDTH 14.8 % (9.0-15.0); WHITE BLOOD COUNT (AUTO) 6.6 K/uL (4.8-10.8)
[2020-08-09 07:39] LABS: ALBUMIN 2.2 g/dL (3.4-4.8); CALCIUM 9.1 mg/dL (8.4-11.0); CREATININE 4.43 mg/dL (0.55-1.30); POTASSIUM 3.8 mmol/L (3.5-5.1); TOTAL BILIRUBIN 0.2 mg/dL (0.0-1.0)
--- NOTE | 2020-08-09 07:45 | NUR ---
OPENING NOTES, RECEIVED PT IN BED, PT IS AAOX4, DENIES PAIN, BP ELEVATED , NO FEVER. ALFORD DRAINING YELLOW URINE. SAFETY PRECAUTION IN PLACE. BED IN LOW POSITION AND LOCKED, CALL LIGHT IN REACH. ENCOURAGED PT TO CALL FOR ASSIST AND PAIN MEDS. WILL CONT TO MONITOR.
[2020-08-09 07:54] VITALS: BP_SYST 176
[2020-08-09] MEDS: PANTOPRAZOLE SODIUM 40 MG/VIAL (PROTONIX) IVP SCH ×2 (08:08→21:02)
[2020-08-09] MEDS: CARVEDILOL 12.5 MG TABLET (COREG) PO SCH ×2 (08:09→21:04)
[2020-08-09] MEDS: NEPHROVITE, (FOLIC ACID/VITAMIN B COMP W-C 1 TAB) PO SCH (08:10)
[2020-08-09] MEDS: LACTOBACILLUS RHAMNOSUS GG 1 CAP CAPSULE PO SCH ×2 (08:10→21:04)
[2020-08-09] MEDS: GABAPENTIN 100 MG CAPSULE PO SCH ×3 (08:10→21:04)
[2020-08-09] MEDS: CHOLECALCIFEROL (VITAMIN D3) 2,000 UNIT TABLET PO SCH (08:11)
[2020-08-09] MEDS: DOXAZOSIN MESYLATE 2 MG TABLET PO SCH ×2 (08:11→21:04)
--- NOTE | 2020-08-09 08:37 | NUR ---
Nutrition Update Gregory scale 17 noted. Pt admitted for CHF. Fluid Overload Diet: CCHO, Renal Standard Diet BMI: 42.8 kg/m2 RD to follow per nutrition care standards.
--- NOTE | 2020-08-09 09:30 | NUR ---
PT RESTING IN BED, NO S/S OF PAIN, NO SOB.
[2020-08-09 09:45] VITALS: BP_SYST 146
--- NOTE | 2020-08-09 10:30 | NUR ---
ALFORD CATH STILL DRAINING REDDISH URINE. FLUSHED WITH 120 CC OF NS. WILL PT TOLERATED WELL. WILL CONT TO MONITOR. Addendum: 08/09/20 at 1122 by Darryl Guerrero RN WRONG ENTRY: PLEASE DISREGARD.
--- NOTE | 2020-08-09 11:00 | NUR ---
PT RESTING IN BED, NO C/O OF PAIN. GIVEN WARM WET TOWEL.
[2020-08-09 11:05] VITALS: BP_SYST 165
[2020-08-09] MEDS: cloNIDine HCL 0.1 MG TABLET PO PRN (11:36)
--- NOTE | 2020-08-09 14:04 | NUR ---
DR FLORENCE IS HERE AND SEEN AND TALKED TO PT AND PT'S DAUGHTER KERA OVER THE PHONE. Addendum: 08/09/20 at 1409 by Darryl Guerrero RN EXPLAINED TO PT AND DTR ABOUT POSSIBLE HD AND THE EFFECT OF DM AND HTN TO KIDNEY FUNCTION AND THE POSSIBLE PLAN OF CARE FOR PT (DIALYSIS).
--- NOTE | 2020-08-09 17:24 | NUR ---
CONSULTATION PAGED/CALLED Reason for Consultation: HEMODIALYSIS CATH PLACEMENT Person Who was Notified: EPIFANIO Consulting Physician: MANUEL Precision Lens Grinder Specialty: SURGEON Ordering Physician: LAYLA
--- NOTE | 2020-08-09 17:43 | NUR ---
DR HAQ CALLED BACK RE CONSULT FOR HEMODIALYSIS CATHETER PLACEMENT. SAID HE MAY NOT BE ABLE TO COME TONIGHT AND HE WILL PATIENT IN THE MORNING.
--- NOTE | 2020-08-09 19:20 | NUR ---
OPENING NOTES: RECEIVED SBAR REPORT FROM DAY SHIFT RN.PATIENT IS IN BED, AOX4, DENIES PAIN. VITAL SIGNS WITHIN NORMAL LIMITS. SAFETY PRECAUTION IN PLACE. BED IN LOW POSITION AND LOCKED, CALL LIGHT IN REACH. ENCOURAGED PT TO CALL FOR ASSIST. WILL CONTINUE TO MONITOR.
--- NOTE | 2020-08-09 19:36 | NUR ---
PER PT, SHE VOID ALREADY AFTER ALFORD WAS DC'D.
[2020-08-09 20:00] VITALS: BP_SYST 155
--- NOTE | 2020-08-09 21:03 | NUR ---
MED PASS: PATIENT GIVEN SCHEDULED MEDICATIONS. NO S/S ACUTE DISTRESS NOTED. SAFETY AND FALL PRECAUTIONS IN PLACE. CALL LIGHT IS WITH PATIENT. WILL MONITOR.
[2020-08-09] MEDS: ENOXAPARIN SODIUM 30 MG/0.3 ML SYRINGE SUBCUT SCH (21:06)
[2020-08-09] MEDS: INSULIN REGULAR, HUMAN 100 UNITS/ML, 10 ML VIAL (humuLIN R) SUBCUT PRN (21:12)
--- NOTE | 2020-08-09 23:30 | NUR ---
RN ROUNDS: PATIENT ASLEEP AND STABLE. SAFETY AND FALL PRECAUTIONS IN PLACE. WILL MONITOR PATIENT FOR ANY CHANGES.
--- NOTE | 2020-08-10 02:10 | NUR ---
RN ROUNDS: PATIENT IS IN THE BED, SLEEPING. NO S/S ACUTE DISTRESS NOTED. RESPIRATION IS EVEN AND UNLABORED ON RA. SAFETY AND FALL PRECAUTIONS MAINTAINED. CALL LIGHT IS WITH PATIENT. WILL CONTINUE TO MONITOR.
[2020-08-10 02:50] VITALS: BP_SYST 156
[2020-08-10 06:31] LABS: BASOPHILS # (AUTO) 0.1 K/uL (0.0-0.2); BASOPHILS % (AUTO) 0.9 % (0.0-2.0); EOSINOPHILS # (AUTO) 0.4 K/uL (0.0-0.4); EOSINOPHILS % (AUTO) 6.5 % (0.0-4.0); HEMATOCRIT 26.7 % (36-48); HEMOGLOBIN 9.1 g/dL (12.0-16.0); LYMPHOCYTES # (AUTO) 1.2 K/uL (1.0-5.5); LYMPHOCYTES % (AUTO) 19.7 % (20.5-51.5); MEAN CORPUSCULAR HEMOGLOBIN 30 pg (27-31); MEAN CORPUSCULAR HGB CONC 34 % (32-36); MEAN CORPUSCULAR VOLUME 87 fL (79.0-98.0); MONOCYTES # (AUTO) 0.8 K/uL (0.0-1.0); MONOCYTES % (AUTO) 12.3 % (1.7-9.3); NEUTROPHILS # (AUTO) 3.8 K/uL (1.8-7.7); NEUTROPHILS % (AUTO) 60.6 % (40.0-70.0); PLATELET COUNT (AUTO) 145 K/uL (130-430); RED BLOOD CELL COUNT(AUTO) 3.08 MIL/uL (4.2-6.2); RED CELL DISTRIBUTION WIDTH 15.2 % (9.0-15.0); WHITE BLOOD COUNT (AUTO) 6.2 K/uL (4.8-10.8)
--- NOTE | 2020-08-10 07:07 | NUR ---
CLOSING NOTE: PATIENT IS IN THE BED, SLEEPING. MORNING BG IS 164, NO INSULIN COVERAGE NEEDED. RESPIRATION IS EVEN AND UNLABORED.SAFETY AND FALL PRECAUTIONS IN PLACE. CALL LIGHT IS WITH PATIENT. ALL NEEDS MET THROUGHOUT SHIFT. WILL ENDORSE PATIENT CARE TO DAY SHIFT RN.
[2020-08-10 07:16] LABS: CALCIUM 8.9 mg/dL (8.4-11.0); CREATININE 4.73 mg/dL (0.55-1.30); POTASSIUM 3.8 mmol/L (3.5-5.1)
--- NOTE | 2020-08-10 07:30 | NUR ---
Opening Note Received endorsement from collaborating supervising physician RN. Pt currently asleep, arousable, no signs of pain or acute distress noted, equal chest rise and fall. IV site locked, no infiltration noted. No other complaints at this time.
[2020-08-10 08:00] VITALS: BP_SYST 140
[2020-08-10] MEDS ORDERED: TUBERCULIN,PURIF.PROT.DERIV. 0.1 ML SYR ID ONE (09:00)
--- NOTE | 2020-08-10 09:15 | NUR ---
Dr. Borrero informed about placement of dialysis catheter. Addendum: 08/10/20 at 1325 by Sonya Camargo RN Informed about order for placement of dialysis catheter.
--- NOTE | 2020-08-10 09:23 | NUR ---
CONSULTATION PAGED REASON FOR CONSULTATION:HEMODIAL;YSIS CATH PLACEMENT WAS CONSULT CALLED?Y PERSON WHO WAS NOTIFIED:JAQUELINE CONSULTING PHYSICIAN:WILLY MOURA OR[employer]ICS PROSTHETICS ASSISTANT SPECIALTY:SURGEON ORTHOTICS PROSTHETICS ASSISTANT PHONE NUMBER:[phone] ORDERING PHYSICIAN:JOSEPH CMAPOS
[2020-08-10] MEDS: PANTOPRAZOLE SODIUM 40 MG/VIAL (PROTONIX) IVP SCH ×2 (09:26→20:55)
[2020-08-10] MEDS: EPOETIN ALFA 10,000 UNITS/ML VIAL SUBCUT SCH (09:27)
[2020-08-10] MEDS: GABAPENTIN 100 MG CAPSULE PO SCH ×3 (09:28→20:59)
[2020-08-10] MEDS: DOXAZOSIN MESYLATE 2 MG TABLET PO SCH ×2 (09:28→20:57)
[2020-08-10] MEDS: LACTOBACILLUS RHAMNOSUS GG 1 CAP CAPSULE PO SCH ×2 (09:28→20:58)
[2020-08-10] MEDS: NEPHROVITE, (FOLIC ACID/VITAMIN B COMP W-C 1 TAB) PO SCH (09:28)
[2020-08-10] MEDS: CHOLECALCIFEROL (VITAMIN D3) 2,000 UNIT TABLET PO SCH (09:29)
--- NOTE | 2020-08-10 09:29 | NUR ---
Nutrition F/U RD reviewed pt's current EMR record including diet hx, MD notes, RN notes, pertinent labs/meds/procedures, care trends, and care activity Admitting Diagnosis CCHO, fluid overload Reviewed Pertinent Medical/Surgical Hx Medical Record Patient Medical History Comment: PMH: HTN, DM type 2, obesity, HLD, diabetic nephropathy, CKD per physician notes Pt also found w/ severe protein malnutrition and morbid obesity per physician notes Subjective Information Pt continues to have good PO intakes of 75-100% of meals since previous RD assessment per intake record. Per MD note, pt's renal function worsening, and pt has agreed to start on HD per desktop manager's recommendations. RD unable to reach pt's primary RN via phone d/t no response. Current diet order remains adequate and appropriate. Will readjust calorie and protein needs based on pt's agreement to start on HD. Will continue monitor. Current Diet Order/Nutrition Support CCHO, renal x7 days Pertinent Medications lasix, glipizide, Vit D3, K-Dur, Culturelle, Nepro-cap/nephrovite, SSHumuLINR Pertinent Labs BUN 66 H. CRE 4.73 H, BG 171 H, POC BG 164 H, ALB 2.2 L NEW Patient Weight 99.337 kg (08/09) -- (-) 5.4 kg in 5 days, possibly d/t fluid status, pt w/ high urine output noted per I&Os Skin Integrity Comment: Gregory scale: 18; no PIs noted per EMR review Current % PO Good (75-100%) NEW Estimated Energy Expenditure (kcals/day) 8732-5108 kcal/day (30-35 kcal/kg Adj IBW for HD needs) NEW Estimated Protein Required (g/day) 72-78 gm/day (1.2-1.3 gm/kg Adj IBW for CKD, HD needs) Estimated Fluid Required (l/day) Per physician d/t CHF/CKD Problem/Etiology/Signs/Symptoms Altered nutrition-related labs related to endocrine dysfunction as evidenced by abnormal BUN, CRE, BG, and POC BG lab values. *ongoing Unintentional wt gain related to fluid shifts as evidenced by possible 21# wt gain within 2-3 months, and Dx of CHF and fluid overload. *ongoing, but downtrending Nutrition-knowledge deficit related to renal therapeutic diet as evidenced by pt report. *resolved, diet education provided by RD on 08/05 Expected Outcomes/Goals - Monitor appetite and PO intakes w/ goal of pt meeting at least 80% of estimated nutritional needs, labs trending WNL, normal GI function, and skin integrity/wt maintenance Dietitian Recommendations * Recommend continuing CCHO, renal diet Follow Up Mod Risk: F/U in 3-5 days
[2020-08-10] MEDS: CARVEDILOL 12.5 MG TABLET (COREG) PO SCH ×2 (09:30→20:58)
--- NOTE | 2020-08-10 09:55 | NUR ---
Dietitian Recommendations * Recommend continuing CCHO, renal diet Please see Nutrition F/U for details. EP,RD
[2020-08-10] MEDS ORDERED: FLU VACC QS2020-21(65UP)/PF 0.7 ML/SYRINGE I.M. ONE (10:04)
[2020-08-10 11:24] VITALS: BP_SYST 148
--- NOTE | 2020-08-10 13:20 | NUR ---
Spoke to Dr. Palmer regarding clarification of orders. States he wants TB test for dialysis. Also informed about patient wanting more information regarding dialysis.
--- NOTE | 2020-08-10 14:00 | NUR ---
IV PLACEMENT: # 20 gauge angiocath placed to right FA. Use of asceptic technique. Opsite placed over site. Blood return noted. Flushed with 10 cc of normal saline. No evidence of infiltration noted. Patient tolerated well. Removed IVSL 20G left AC due to infiltration, catheter tip intact, bleeding controlled.
[2020-08-10 15:12] VITALS: BP_SYST 134
[2020-08-10] MEDS ORDERED: HEPARIN SODIUM,PORCINE 5,000 UNITS/ML VIAL ONE (16:47)
[2020-08-10] MEDS ORDERED: HEPARIN SODIUM,PORCINE 5,000 UNITS/ML VIAL IVP ONE (17:30)
[2020-08-10] MEDS ORDERED: MORPHINE 4 MG/ML INJ. SYRINGE ONE (18:22)
--- NOTE | 2020-08-10 19:02 | NUR ---
Dialysis catheter placed by Dr. Borrero in right IJ. Pt also received 2 mg morphine IVP per Dr. Borrero's orders given directly. Pt tolerated well. Bleeding controlled.
--- NOTE | 2020-08-10 19:13 | NUR ---
Closing Xray currently at bedside examining placement of dialysis catheter with pigtail port. Noted some leaking around IV catheter RFA. No other complaints per pt. Endorsed plan of care.
[2020-08-10] MEDS ORDERED: MORPHINE 2 MG/ML INJ. SYRINGE IVP ONE (19:15)
[2020-08-10 20:00] VITALS: BP_SYST 148
--- NOTE | 2020-08-10 20:00 | NUR ---
AWAKE, ALERT, ORIENTED. STATED WAS IN PAIN EARLIER, BUT DENIES PAIN AT THIS TIME. JUST SPOKE TO DAUGHTER KERA. USED WALKER TO AMBULATE TO BATHROOM. URINATED, SELF EMIR CARE DONE. AMBULATED BACK TO BED WITHOUT INCIDENCE VIA WALKER.
[2020-08-10] MEDS: INSULIN REGULAR, HUMAN 100 UNITS/ML, 10 ML VIAL (humuLIN R) SUBCUT PRN (20:50)
[2020-08-10] MEDS: ENOXAPARIN SODIUM 30 MG/0.3 ML SYRINGE SUBCUT SCH (21:00)
--- NOTE | 2020-08-10 21:00 | NUR ---
ABLE TO SWALLOW PILLS WITHOUT PROBLEMS. TALKING TO RELATIVES ON THE PHONE. ACCU-CHEK 186 , NO INSULIN DUE PER SLIDING SCALE COV.
--- NOTE | 2020-08-10 21:30 | NUR ---
DR RICE HERE, ASSESSED PT. NO NEW ORDERS GIVEN.
--- NOTE | 2020-08-10 21:40 | NUR ---
HEMODIALYSIS NURSE HERE, HD STARTED.
--- NOTE | 2020-08-10 22:00 | NUR ---
ATE SNACKS, 1/2 TURKEY SANDWICH AND SOME APPLE JUICE.
[2020-08-10] MEDS ORDERED: HEPARIN SODIUM,PORCINE 5,000 UNITS/ML VIAL SUBCUT ONE ×2 (23:00)
--- NOTE | 2020-08-10 23:40 | NUR ---
HIGH ALERT NOTE: Called Dr. RICH back at [phone] identified within the medical roster to verify physician authenticity.
[2020-08-11] VITALS: BP_SYST 150
--- NOTE | 2020-08-11 00:15 | NUR ---
HEMODIALYSIS DONE, 1.6 LITERS OUT.
[2020-08-11 00:20] VITALS: BP_SYST 146
--- NOTE | 2020-08-11 03:00 | NUR ---
SLEPT INTERMITTENTLY. AMBULATES TO BR TO URINATE. SELF EMIR-CARE DONE.
--- NOTE | 2020-08-11 06:00 | NUR ---
SLEPT FOR LONG PERIODS OF TIME. NO DISTRESS NOTED. REMAINS IN GUARDED CONDITION.
[2020-08-11 06:53] LABS: BASOPHILS % (AUTO) 0.6 % (0.0-2.0); EOSINOPHILS # (AUTO) 0.4 K/uL (0.0-0.4); HEMATOCRIT 26.9 % (36-48); HEMOGLOBIN 9.4 g/dL (12.0-16.0); LYMPHOCYTES # (AUTO) 0.7 K/uL (1.0-5.5); LYMPHOCYTES % (AUTO) 11.4 % (20.5-51.5); MEAN CORPUSCULAR HEMOGLOBIN 30 pg (27-31); MEAN CORPUSCULAR HGB CONC 35 % (32-36); MEAN CORPUSCULAR VOLUME 86 fL (79.0-98.0); MONOCYTES # (AUTO) 0.6 K/uL (0.0-1.0); MONOCYTES % (AUTO) 9.2 % (1.7-9.3); NEUTROPHILS # (AUTO) 4.6 K/uL (1.8-7.7); NEUTROPHILS % (AUTO) 72.8 % (40.0-70.0); PLATELET COUNT (AUTO) 156 K/uL (130-430); RED BLOOD CELL COUNT(AUTO) 3.12 MIL/uL (4.2-6.2); RED CELL DISTRIBUTION WIDTH 14.7 % (9.0-15.0); WHITE BLOOD COUNT (AUTO) 6.3 K/uL (4.8-10.8)
--- NOTE | 2020-08-11 07:00 | NUR ---
ACCU-CHEK 140, NO INSULIN DUE PER SLIDING SCALE COV.
[2020-08-11] MEDS: INSULIN REGULAR, HUMAN 100 UNITS/ML, 10 ML VIAL (humuLIN R) SUBCUT PRN (07:02)
[2020-08-11 08:00] VITALS: BP_SYST 151
[2020-08-11] MEDS: PANTOPRAZOLE SODIUM 40 MG/VIAL (PROTONIX) IVP SCH (09:00)
[2020-08-11] MEDS: GABAPENTIN 100 MG CAPSULE PO SCH ×3 (09:01→22:18)
[2020-08-11] MEDS: DOXAZOSIN MESYLATE 2 MG TABLET PO SCH ×2 (09:01→22:20)
[2020-08-11] MEDS: LACTOBACILLUS RHAMNOSUS GG 1 CAP CAPSULE PO SCH ×2 (09:02→22:19)
[2020-08-11] MEDS: NEPHROVITE, (FOLIC ACID/VITAMIN B COMP W-C 1 TAB) PO SCH (09:02)
[2020-08-11] MEDS: CHOLECALCIFEROL (VITAMIN D3) 2,000 UNIT TABLET PO SCH (09:03)
[2020-08-11] MEDS: CARVEDILOL 12.5 MG TABLET (COREG) PO SCH ×2 (09:03→22:19)
--- NOTE | 2020-08-11 10:21 | NUR ---
sitting up, eating breakfast when first seen. " rough nite, cant sleep bec of this, pointed to her Right IJ Brian, right side of neck, in the way, slight blood stain seen on pillow case. Other than that she is okay, she said. alert, orientedm, and appropriate, no other complaint. both lower extremities with some noticeable swelling, pitting.. Able to walk to bathroom with a walker
[2020-08-11 12:14] VITALS: BP_SYST 112
[2020-08-11 12:34] LABS: CALCIUM 9.2 mg/dL (8.4-11.0); CREATININE 3.18 mg/dL (0.55-1.30); PHOSPHORUS 3.7 mg/dL (2.7-4.5); POTASSIUM 3.8 mmol/L (3.5-5.1); URIC ACID 5.8 mg/dL (2.4-7.0)
[2020-08-11] MEDS ORDERED: HEPARIN SODIUM,PORCINE 5,000 UNITS/ML VIAL MC ONE (15:45)
[2020-08-11 16:12] VITALS: BP_SYST 135
--- NOTE | 2020-08-11 19:15 | NUR ---
opening note Received patient awake, AOx4 resting in bed, no distress and non labored breathing on room air. She is watching t.v. IV is SL on RFA. She has RIJ HD catheter. Presently denies pain. Bed is locked in lowest position, side rails up 3x, she refused bed alarm; she has been ambulating w/ walker. Reviewed plan of care and updated board.
[2020-08-11 20:00] VITALS: BP_SYST 140
[2020-08-11] MEDS: ENOXAPARIN SODIUM 30 MG/0.3 ML SYRINGE SUBCUT SCH (22:24)
--- NOTE | 2020-08-11 22:25 | NUR ---
Meds, Accucheck Due meds given; she swallows pills with water. Accucheck done and result of 162 mg/dL noted; no coverage due. She requested a sandwich; it was provided. Will continue to monitor.
[2020-08-12] VITALS (7 sets, daily range): BP systolic 120–184
--- NOTE | 2020-08-12 00:20 | NUR ---
rounds, V/S Patient resting w/ eyes closed and easy to arouse for V/S. B/P 149/75 HR 73; she ambulated to restroom w/ walker for void and returned to bed. Call light w/in reach.
--- NOTE | 2020-08-12 02:40 | NUR ---
sleeping Patient sleeping, no distress noted, symmetrical rise and fall of chest. Call light w/in reach.
--- NOTE | 2020-08-12 06:55 | NUR ---
closing note Accucheck done w/ result of 124 mg/dL; no coverage. Daily weight done. Applied lotion to legs, denies pain. She wants to rest in bed and be covered again. No distress, non labored breathing. Call light w/in reach. Will endorse care to day shift nurse
--- NOTE | 2020-08-12 07:50 | NUR ---
INITIAL NOTE RECEIVED PT IN BED, NO S/S OF DISTRESS OR SOB NOTED, PT HAS NO C/O PAIN AT THIS TIME, PT IN STABLE CONDITION, PT AAOX4, VERBAL, IV CATHETER PATENT, NO SIGNS OF INFECTION OR INFILTRATION NOTED, SALINE LOCK. BED AT LOWEST POSITION, CALL LIGHT WITHIN REACH, WILL CONTINUE TO MONITOR PT FOR ANY CHANGES, FALL AND SAFETY PRECAUTIONS IN PLACE.
[2020-08-12] MEDS: NEPHROVITE, (FOLIC ACID/VITAMIN B COMP W-C 1 TAB) PO SCH (08:14)
[2020-08-12] MEDS: DOXAZOSIN MESYLATE 2 MG TABLET PO SCH ×2 (08:14→22:15)
[2020-08-12] MEDS: PANTOPRAZOLE SODIUM 40 MG TAB PO SCH (08:14)
[2020-08-12] MEDS: CHOLECALCIFEROL (VITAMIN D3) 2,000 UNIT TABLET PO SCH (08:14)
[2020-08-12] MEDS: LACTOBACILLUS RHAMNOSUS GG 1 CAP CAPSULE PO SCH ×2 (08:14→22:12)
[2020-08-12] MEDS: GABAPENTIN 100 MG CAPSULE PO SCH ×3 (08:14→22:12)
[2020-08-12] MEDS: CARVEDILOL 12.5 MG TABLET (COREG) PO SCH ×2 (08:15→22:14)
[2020-08-12] MEDS: EPOETIN ALFA 10,000 UNITS/ML VIAL SUBCUT SCH (08:15)
--- NOTE | 2020-08-12 10:20 | NUR ---
ROUNDS PT IN BED, NO S/S OF DISTRESS OR SOB NOTED, PT HAS NO C/O PAIN AT THIS TIME, PT IN STABLE CONDITION, PT RESTING COMFORTABLY. WILL CONTINUE TO MONITOR PT FOR ANY CHANGES.
--- NOTE | 2020-08-12 10:34 | NUR ---
MD ROUNDS DR RICH ROUNDING, AWARE OF PATIENT'S CONDITION, PER MD HE ORDERED PPD TEST ON 08/10/2020, PER MD TEST IS NEGATIVE, SPOKE WITH MD THAT THERE WAS NO TRACE OF PPD GIVEN IN [facility], PER IT WAS GIVEN AND IT IS NOW NEGATIVE.
[2020-08-12] MEDS: INSULIN REGULAR, HUMAN 100 UNITS/ML, 10 ML VIAL (humuLIN R) SUBCUT PRN ×2 (11:29→17:04)
[2020-08-12 14:58] LABS: BASOPHILS % (AUTO) 0.9 % (0.0-2.0); EOSINOPHILS # (AUTO) 0.4 K/uL (0.0-0.4); HEMATOCRIT 26.8 % (36-48); HEMOGLOBIN 9.1 g/dL (12.0-16.0); LYMPHOCYTES # (AUTO) 1.2 K/uL (1.0-5.5); LYMPHOCYTES % (AUTO) 23.1 % (20.5-51.5); MEAN CORPUSCULAR HEMOGLOBIN 29 pg (27-31); MEAN CORPUSCULAR HGB CONC 34 % (32-36); MEAN CORPUSCULAR VOLUME 86 fL (79.0-98.0); MONOCYTES # (AUTO) 0.7 K/uL (0.0-1.0); MONOCYTES % (AUTO) 14.5 % (1.7-9.3); NEUTROPHILS # (AUTO) 2.7 K/uL (1.8-7.7); NEUTROPHILS % (AUTO) 53.5 % (40.0-70.0); PLATELET COUNT (AUTO) 145 K/uL (130-430); RED CELL DISTRIBUTION WIDTH 15.1 % (9.0-15.0)
--- NOTE | 2020-08-12 15:00 | NUR ---
DC Planning: Discussed dcp with dr. Palmer: stated renal condition villalobos, it is stable. The md ordered to arrange outpatient HD with [facility]. The final dc is per dr. Dotson.
[2020-08-12 15:04] LABS: CALCIUM 8.9 mg/dL (8.4-11.0); CREATININE 2.99 mg/dL (0.55-1.30); POTASSIUM 3.5 mmol/L (3.5-5.1)
--- NOTE | 2020-08-12 15:46 | NUR ---
PAGED PAGED RUPERTO KENNEDY AT [phone] SPOKE WITH VANNA.
--- NOTE | 2020-08-12 16:20 | NUR ---
MD RUSS SPOKE WITH DR FLORENCE, MADE HIM AWARE OF LAB RESULTS.
--- NOTE | 2020-08-12 16:58 | NUR ---
Discharge Planning: DCP faxed pt referral to [facility] (f [phone] p [phone]) New dialysis no new admit processed on the weekend. DCP confirmed [facility] (f [phone] p [phone]) is still accepting patient.
--- NOTE | 2020-08-12 18:33 | NUR ---
CLOSING NOTE PT IN BED, NO S/S OF DISTRESS OR SOB NOTED, PT HAS NO C/O PAIN AT THIS TIME, PT IN STABLE CONDITION, PT AAOX4, VERBAL, IV CATHETER PATENT, NO SIGNS OF INFECTION OR INFILTRATION NOTED, SALINE LOCK. BED AT LOWEST POSITION, CALL LIGHT WITHIN REACH, WILL ENDORSE CARE OF PT TO INCOMING NURSE, FALL AND SAFETY PRECAUTIONS IN PLACE.
[2020-08-12] MEDS: ENOXAPARIN SODIUM 30 MG/0.3 ML SYRINGE SUBCUT SCH (22:18)
[2020-08-13 05:00] VITALS: BP_SYST 150
--- NOTE | 2020-08-13 07:54 | NUR ---
OPENING NOTE RECEIVED SBAR FROM NIGHT RN, PATIENT IN BED RESPIRATIONS EVEN, NON LABORED, BED IN LOW AND LOCKED POSITION, CALL LIGHT WITHIN REACH,
[2020-08-13 08:00] VITALS: BP_SYST 160
--- NOTE | 2020-08-13 08:00 | NUR ---
NURSE NOTE OBTAINED VS, PATIENT IN BED, RESPIRATIONS EVEN, NON LABORED, BED IN LOW AND LOCKED POSITION, CALL LIGHT WITHIN REACH, DENIES ANY PAIN OR DISCOMFORT
[2020-08-13 08:07] LABS: BASOPHILS % (AUTO) 0.8 % (0.0-2.0); EOSINOPHILS # (AUTO) 0.4 K/uL (0.0-0.4); EOSINOPHILS % (AUTO) 7.9 % (0.0-4.0); HEMATOCRIT 27.4 % (36-48); HEMOGLOBIN 9.4 g/dL (12.0-16.0); LYMPHOCYTES # (AUTO) 1.4 K/uL (1.0-5.5); LYMPHOCYTES % (AUTO) 23.7 % (20.5-51.5); MEAN CORPUSCULAR HEMOGLOBIN 30 pg (27-31); MEAN CORPUSCULAR HGB CONC 34 % (32-36); MEAN CORPUSCULAR VOLUME 87 fL (79.0-98.0); MONOCYTES # (AUTO) 0.7 K/uL (0.0-1.0); MONOCYTES % (AUTO) 12.3 % (1.7-9.3); NEUTROPHILS # (AUTO) 3.1 K/uL (1.8-7.7); NEUTROPHILS % (AUTO) 55.3 % (40.0-70.0); PLATELET COUNT (AUTO) 151 K/uL (130-430); RED BLOOD CELL COUNT(AUTO) 3.15 MIL/uL (4.2-6.2); RED CELL DISTRIBUTION WIDTH 15.3 % (9.0-15.0); WHITE BLOOD COUNT (AUTO) 5.7 K/uL (4.8-10.8)
[2020-08-13 08:44] LABS: CALCIUM 9.1 mg/dL (8.4-11.0); CREATININE 3.31 mg/dL (0.55-1.30); PHOSPHORUS 4.3 mg/dL (2.7-4.5); POTASSIUM 3.8 mmol/L (3.5-5.1); TOTAL BILIRUBIN 0.2 mg/dL (0.0-1.0)
[2020-08-13] MEDS: NEPHROVITE, (FOLIC ACID/VITAMIN B COMP W-C 1 TAB) PO SCH (09:16)
[2020-08-13] MEDS: GABAPENTIN 100 MG CAPSULE PO SCH ×3 (09:16→22:25)
[2020-08-13] MEDS: LACTOBACILLUS RHAMNOSUS GG 1 CAP CAPSULE PO SCH ×2 (09:16→22:25)
[2020-08-13] MEDS: DOXAZOSIN MESYLATE 2 MG TABLET PO SCH (09:17)
[2020-08-13] MEDS: PANTOPRAZOLE SODIUM 40 MG TAB PO SCH (09:17)
[2020-08-13] MEDS: CHOLECALCIFEROL (VITAMIN D3) 2,000 UNIT TABLET PO SCH (09:18)
[2020-08-13] MEDS: CARVEDILOL 12.5 MG TABLET (COREG) PO SCH (09:18)
--- NOTE | 2020-08-13 10:00 | NUR ---
NURSE NOTE PATIENT IN BED, RESPIRATIONS EVEN, NON LABORED, BED IN LOW AND LOCKED POSITION, CALL LIGHT WITHIN REACH, PATIENT DENIES ANY PAIN OR DISCOMFORT
--- NOTE | 2020-08-13 10:12 | NUR ---
Returns Processor: notes Valencia from [facility] called asking if patient was going to be discharged. PROCESSOR SOLID PROPELLANT notified her that the dialysis will not be set up until Saturday. PROCESSOR SOLID PROPELLANT will remain available as needed.
--- NOTE | 2020-08-13 11:15 | NUR ---
NURSE NOTE OBTAINED BS, PATIENT IN BED, RESPIRATIONS EVEN, NON LABORED, BED IN LOW AND LOCKED POSITION, CALL LIGHT WITHIN REACH, DENIES ANY PAIN OR DISCOMFORT
[2020-08-13 12:00] VITALS: BP_SYST 127
--- NOTE | 2020-08-13 12:33 | NUR ---
NURSE NOTE PROVIDED PATIENT WITH LUNCH, BED IN LOW AND LOCKED POSITION, CALL LIGHT WITHIN REACH
--- NOTE | 2020-08-13 13:11 | NUR ---
NURSE NOTE REMOVED PATIENTS LUNCH, PATIENT SITTING ON EDGE OF BED, RESPIRATIONS EVEN, NON LABORED, BED IN LOW AND LOCKED POSITION, DENIES ANY PAIN OR DISCOMFORT
--- NOTE | 2020-08-13 13:30 | NUR ---
DIALYSIS DIALYSIS STARTED
--- NOTE | 2020-08-13 14:08 | NUR ---
P.T. NOTES HOLD P.T. RE EVAL, Pt ON HD, FF UP WHEN ABLE.
--- NOTE | 2020-08-13 14:50 | NUR ---
HIGH ALERT NOTE: Called Dr. RICH back at identified within the medical roster to verify physician authenticity.
--- NOTE | 2020-08-13 14:52 | NUR ---
MD ROUNDS DR FLORENCE BEDSIDE EXAMINING PATIENT, DR CORTES NO IV ACCESS, OK PER DR FLORENCE
[2020-08-13] MEDS ORDERED: ALBUMIN HUMAN 25% 200 ML IV ONE (15:00)
[2020-08-13] MEDS ORDERED: calcitrioL 0.25 MCG CAPSULE PO ONE (15:00)
[2020-08-13] MEDS ORDERED: HEPARIN SODIUM, PORCINE 10,000 UNITS/ 10 ML VIAL MC ONE (15:00)
--- NOTE | 2020-08-13 15:43 | NUR ---
CONSULT SURGERY TUNNELED HD CATHETER WILLY ELIZABETH [phone] S/W YANIRAVince OBRIEN
[2020-08-13 16:00] VITALS: BP_SYST 139
--- NOTE | 2020-08-13 16:29 | NUR ---
DIALYSIS DIALYSIS COMPLETED, NO SIGNS OF DISTRESS, BED IN LOW AND LOCKED POSITION, CALL LIGHT WITHIN REACH
--- NOTE | 2020-08-13 16:55 | NUR ---
nurse note obtained bs, no insulin indicated per sliding scale, bed in low and locked position call light within reach
--- NOTE | 2020-08-13 17:00 | NUR ---
md Rounds DR MERCADO BEDSIDE EXAMINING PATIENT, NEW ORDERS RECEIVED
[2020-08-13] MEDS ORDERED: ONDANSETRON 4 MG ODT TAB PO PRN (17:15)
--- NOTE | 2020-08-13 19:16 | NUR ---
CLOSING N OTE PROVIDED SBAR TO NIGHT RN, PATIENT IN BED RESPIRATIONS EVEN, NON LABORED BED IN LOW AND LOCKED POSITION, CALL LIGHT WITHIN REACH, ENDORSED CARE TO NIGHT RN
--- NOTE | 2020-08-13 19:30 | NUR ---
INITIAL NOTE AT INITIAL ASSESSMENT, PATIENT IS RESTING IN BED, STABLE, NO SIGNS OF RESPIRATORY DISTRESS. PATIENT VERBALIZES NO PAIN. PLAN OF CARE FOR THE EVENING IS COMMUNICATED WITH THE PATIENT. PATIENT DEMONSTRATES CORRECT USAGE OF CALL LIGHT AT THIS TIME. BED IS LOCKED, ALARMED, AND AT THE LOWEST LEVEL. FALL SAFETY EDUCATION PROVIDED.PT VERBALIZED UNDERSTANDING. FALL, SAFETY, AND RESPIRATORY PRECAUTIONS WILL BE TAKEN THROUGHOUT THE SHIFT.
[2020-08-13 20:07] VITALS: BP_SYST 151; BP_SYST 88
[2020-08-13] MEDS ORDERED: LOPERAMIDE HCL 2 MG CAPSULE PO PRN (20:15)
--- NOTE | 2020-08-13 22:00 | NUR ---
PT IS SITTING ON EDGE OF BED, TALKING TO FAMILY MEMBER VIA HER CELLPHONE, STABLE. NO COMPALIN OF PAIN. NEEDS ATTENDED, CALL LIGHT IN REACH. SAFETY PRECAUTION IN PLACE
[2020-08-13] MEDS: CARVEDILOL 6.25 MG TABLET (COREG) PO SCH (22:23)
[2020-08-13] MEDS: LOSARTAN POTASSIUM 50 MG TABLET (COZAAR) PO SCH (22:25)
[2020-08-13] MEDS: ENOXAPARIN SODIUM 30 MG/0.3 ML SYRINGE SUBCUT SCH (22:27)
[2020-08-13] MEDS: INSULIN REGULAR, HUMAN 100 UNITS/ML, 10 ML VIAL (humuLIN R) SUBCUT PRN (22:38)
[2020-08-14] VITALS: BP_SYST 162
--- NOTE | 2020-08-14 | NUR ---
PT IS AWAKE, ALERT. SITTING ON EDGE OF BED, TALKING TO FAMILY MEMBER VIA HER CELLPHONE, STABLE VITAL SIGN. NO COMPLAIN OF PAIN. NEEDS ATTENDED, CALL LIGHT IN REACH. SAFETY PRECAUTION IN PLACE.
[2020-08-14] MEDS: hydrALAZINE HCL 20 MG/ML VIAL IVP PRN (00:41)
--- NOTE | 2020-08-14 02:00 | NUR ---
SLEEPING, COMFORTABLE, NO SIGN OF PAIN AND DISTRESS,CALL LIGHT IN REACH. BED IN LOWEST POSITION.
--- NOTE | 2020-08-14 03:58 | NUR ---
NOTE PATIENT IS RESTING IN BED, STABLE, NO SIGNS OF RESPIRATORY DISTRESS.NO PAIN. CALL LIGHT IS WITHIN REACH. BED IS LOCKED, ALARMED, AND AT THE LOWEST LEVEL.
--- NOTE | 2020-08-14 06:00 | NUR ---
pt is awake, alert, watching tv. stable. call light in reach. side rails up. low bed position.
--- NOTE | 2020-08-14 07:00 | NUR ---
closing: pt is still watching tv. stable the whole shift, no complain of pain. iv lock intact to left fore arm. needs attended the whole shift. sbar report given to hillary rn.
--- NOTE | 2020-08-14 07:03 | NUR ---
opening note received sbar from night RN, patient in bed respirations even, non labored, bed in low and locked position, call light within reach,
[2020-08-14 08:00] VITALS: BP_SYST 133
--- NOTE | 2020-08-14 08:00 | NUR ---
nurse note obtained vs, patient in bed, awake alert, bed in low and locked position, call light within reach, denies any pain or discomfort
[2020-08-14 08:58] LABS: CALCIUM 9.1 mg/dL (8.4-11.0); CREATININE 2.74 mg/dL (0.55-1.30); POTASSIUM 3.5 mmol/L (3.5-5.1)
[2020-08-14 09:10] LABS: BASOPHILS % (AUTO) 0.9 % (0.0-2.0); EOSINOPHILS # (AUTO) 0.4 K/uL (0.0-0.4); EOSINOPHILS % (AUTO) 6.9 % (0.0-4.0); HEMATOCRIT 27.2 % (36-48); HEMOGLOBIN 9.4 g/dL (12.0-16.0); LYMPHOCYTES # (AUTO) 1.4 K/uL (1.0-5.5); LYMPHOCYTES % (AUTO) 25.1 % (20.5-51.5); MEAN CORPUSCULAR HEMOGLOBIN 30 pg (27-31); MEAN CORPUSCULAR HGB CONC 34 % (32-36); MEAN CORPUSCULAR VOLUME 87 fL (79.0-98.0); MONOCYTES # (AUTO) 0.6 K/uL (0.0-1.0); MONOCYTES % (AUTO) 11.5 % (1.7-9.3); NEUTROPHILS # (AUTO) 3.1 K/uL (1.8-7.7); NEUTROPHILS % (AUTO) 55.6 % (40.0-70.0); PLATELET COUNT (AUTO) 154 K/uL (130-430); RED BLOOD CELL COUNT(AUTO) 3.14 MIL/uL (4.2-6.2); RED CELL DISTRIBUTION WIDTH 14.9 % (9.0-15.0); WHITE BLOOD COUNT (AUTO) 5.6 K/uL (4.8-10.8)
--- NOTE | 2020-08-14 09:15 | NUR ---
nurse note administered medications, educated patient on indications and s/e of coreg, answered all questions, patient verbalized understanding , bed in low and locked position call light within reach
[2020-08-14] MEDS: PANTOPRAZOLE SODIUM 40 MG TAB PO SCH (09:24)
[2020-08-14] MEDS: GABAPENTIN 100 MG CAPSULE PO SCH ×3 (09:24→20:38)
[2020-08-14] MEDS: NEPHROVITE, (FOLIC ACID/VITAMIN B COMP W-C 1 TAB) PO SCH (09:24)
[2020-08-14] MEDS: LACTOBACILLUS RHAMNOSUS GG 1 CAP CAPSULE PO SCH ×2 (09:24→20:38)
[2020-08-14] MEDS: CARVEDILOL 6.25 MG TABLET (COREG) PO SCH ×2 (09:25→20:36)
[2020-08-14] MEDS: calcitrioL 0.25 MCG CAPSULE PO SCH (09:36)
[2020-08-14] MEDS: LOSARTAN POTASSIUM 50 MG TABLET (COZAAR) PO SCH ×2 (09:36→20:38)
--- NOTE | 2020-08-14 11:38 | NUR ---
NURSE NOTE OBTAINED BS, NO COVERAGE PER SLIDING SCALE, PATIENT IN BED, RESPIRATIONS EVEN, NON LABORED, BED IN LOW AND LOCKED POSITION CALL LIGHT WITHIN REACH, NO COMPLAINTS OF PAIN OR DISCOMFORT
--- NOTE | 2020-08-14 11:58 | NUR ---
DC Barriers:1. HD set up to be done on Wednesday 08/15. 2. dr. Borrero/MANUEL weigher production wk consultation for tunneled cath placement ( pt had Rt IJ on 08/10).
[2020-08-14 12:00] VITALS: BP_SYST 132
--- NOTE | 2020-08-14 13:52 | NUR ---
nurse note patient in bed watching tv, bed in low and locked position, call light within reach, denies any pain or discomfort
--- NOTE | 2020-08-14 14:24 | NUR ---
NURSE NOTE PATIENT IN BED RESPIRATIONS EVEN, NON LABORED, BED IN LOW AND LOCKED POSITION CALL LIGHT WITHIN REACH, ADMINISTERED MEDICATIONS, PATIENT DENIES ANY PAIN OR DISCOMFORT
[2020-08-14 16:00] VITALS: BP_SYST 126
--- NOTE | 2020-08-14 16:05 | NUR ---
PAGED PAGED JOSEPH CAMPOS AT [phone]PHA SUTTON SHERI COMMUNICATIONS AGENT.
--- NOTE | 2020-08-14 16:10 | NUR ---
DIALYSIS DR MERCADO AT [facility], DID NOT ORDER DIALYSIS FOR TOMORROW, ORDERED LABS AND WILL DECIDE AFTER RESULTS.
--- NOTE | 2020-08-14 16:11 | NUR ---
MD ROUNDS DR MERCADO BEDSIDE EXAMINING PATIENT
--- NOTE | 2020-08-14 16:51 | NUR ---
NURSE NOTE OBTAINED BS, NO COVERAGE PER SLIDING SCALE, PATIENT IN BED, DENIES ANY PAIN OR DISCOMFORT
--- NOTE | 2020-08-14 18:30 | NUR ---
nurse note patient sitting on the edge of the bed, respirations even, non labored, bed in low and locked position call light within reach, bed alarm on. Denies any pain or discomfort Addendum: 08/14/20 at 1849 by Mateo Langford RN patient is ambulatory, bed alarm is not on
[2020-08-14 19:00] VITALS: BP_SYST 128
--- NOTE | 2020-08-14 19:16 | NUR ---
CLOSING NOTE PROVIDED SBAR TO NIGHT RN, PATIENT IN BED RESPIRATIONS EVEN, NON LABORED, BED IN LOW AND LOCKED POSITION, CALL LIGHT WITHIN REACH, ENDORSED CARE TO NIGHT RN.
[2020-08-14 20:00] VITALS: BP_SYST 128
[2020-08-14] MEDS ORDERED: LOSARTAN POTASSIUM 25 MG TABLET ONE ×2 (20:28→20:33)
[2020-08-14] MEDS: ENOXAPARIN SODIUM 30 MG/0.3 ML SYRINGE SUBCUT SCH (20:43)
--- NOTE | 2020-08-14 21:58 | NUR ---
SBAR Received SBAR report from JESS Marques. Patient is awake, AOx4 resting in bed, no distress and non labored breathing on room air. Lights are off and she is watching t.v. She has RIJ HD catheter. Presently denies pain, though reports the hallway is noisy. Bed is locked in lowest position, side rails up 3x, she refused bed alarm; she has been ambulating w/ walker. Call light w/in reach.
--- NOTE | 2020-08-14 23:16 | NUR ---
snack Patient reports is hungry and requesting sandwich. Provided 1/2 turkey sandwich.
--- NOTE | 2020-08-15 00:10 | NUR ---
V/S, awake Patient is awake and talking on cell phone. VSS and she denies pain. She has no further needs. Call light w/in reach.
[2020-08-15 00:24] VITALS: BP_SYST 150
--- NOTE | 2020-08-15 02:24 | NUR ---
sleeping Patient sleeping, no distress, nonlabored breathing. Light is off and call light w/in reach. Safety precautions maintained, will continue to monitor.
--- NOTE | 2020-08-15 04:30 | NUR ---
sleeping Patient sleeping, no distress, nonlabored breathing. Call light w/in reach, will continue to monitor.
--- NOTE | 2020-08-15 06:50 | NUR ---
CLOSING NOTE Patient awake, resting inbed. Accucheck done w/ result of 124 mg/dL; no coverage due. Daily weight taken. Needs met throughout shift. Safety a precautions maintained. Will endorse care.
[2020-08-15 07:34] LABS: BASOPHILS % (AUTO) 0.8 % (0.0-2.0); EOSINOPHILS # (AUTO) 0.4 K/uL (0.0-0.4); EOSINOPHILS % (AUTO) 6.6 % (0.0-4.0); HEMATOCRIT 26.5 % (36-48); HEMOGLOBIN 9.1 g/dL (12.0-16.0); LYMPHOCYTES # (AUTO) 1.5 K/uL (1.0-5.5); LYMPHOCYTES % (AUTO) 24.5 % (20.5-51.5); MEAN CORPUSCULAR HEMOGLOBIN 30 pg (27-31); MEAN CORPUSCULAR HGB CONC 34 % (32-36); MEAN CORPUSCULAR VOLUME 87 fL (79.0-98.0); MONOCYTES # (AUTO) 0.6 K/uL (0.0-1.0); MONOCYTES % (AUTO) 10.6 % (1.7-9.3); NEUTROPHILS # (AUTO) 3.5 K/uL (1.8-7.7); NEUTROPHILS % (AUTO) 57.5 % (40.0-70.0); PLATELET COUNT (AUTO) 155 K/uL (130-430); RED BLOOD CELL COUNT(AUTO) 3.05 MIL/uL (4.2-6.2)
[2020-08-15 07:52] VITALS: BP_SYST 152
[2020-08-15 07:56] LABS: CREATININE 4.25 mg/dL (0.55-1.30); POTASSIUM 3.6 mmol/L (3.5-5.1)
--- NOTE | 2020-08-15 08:00 | NUR ---
OPENING NOTES RECEIVED PT IN BED, PT IS AOX4, DENIES PAIN, NO SOB, NO FEVER. SAFETY PRECAUTION IN PLACE. CALL LIGHT IN REACH, BED IN LOW POSITION. WILL CONT TO MONITOR.
[2020-08-15] MEDS: NEPHROVITE, (FOLIC ACID/VITAMIN B COMP W-C 1 TAB) PO SCH (08:35)
[2020-08-15] MEDS: GABAPENTIN 100 MG CAPSULE PO SCH ×3 (08:35→20:41)
[2020-08-15] MEDS: PANTOPRAZOLE SODIUM 40 MG TAB PO SCH (08:35)
[2020-08-15] MEDS: LACTOBACILLUS RHAMNOSUS GG 1 CAP CAPSULE PO SCH ×2 (08:35→20:40)
[2020-08-15] MEDS: EPOETIN ALFA 10,000 UNITS/ML VIAL SUBCUT SCH (08:36)
[2020-08-15] MEDS: CARVEDILOL 6.25 MG TABLET (COREG) PO SCH ×2 (08:36→20:40)
[2020-08-15] MEDS: LOSARTAN POTASSIUM 50 MG TABLET (COZAAR) PO SCH ×2 (08:45→20:46)
[2020-08-15] MEDS: calcitrioL 0.25 MCG CAPSULE PO SCH (09:00)
--- NOTE | 2020-08-15 10:29 | NUR ---
Discharge Planning: DCP followed up with Dewey at [facility] (f [phone] p [phone]) Karl the facility admission is out sick, Dewey will forward referral. DCP to follow up
--- NOTE | 2020-08-15 10:30 | NUR ---
MAURO DEMONSTRATED INDEPENDENT AMBULATION IN HER ROOM FOR A TOTAL OF 60 FT. SHE DOES NOT LIKE TO LEAVE THE ROOM BECAUSE OF FEAR OF BEING EXPOSED TO A POSSIBLE INFECTION. INFORMED THE PATIENT'S RN. THERE IS NO NEED FOR FURTHER PHYSICAL THERAPY AT THIS TIME.
[2020-08-15 11:25] VITALS: BP_SYST 161
--- NOTE | 2020-08-15 13:52 | NUR ---
Nutrition F/U RD reviewed pt's current EMR record including diet hx, MD notes, RN notes, pertinent labs/meds/procedures, care trends, and care activity Admitting Diagnosis: CHF, fluid overload Medical History Comment: PMH: HTN, DM type 2, obesity, HLD, diabetic nephropathy, CKD per physician notes Pt also found w/ severe protein malnutrition and morbid obesity per physician notes SARS-CoV-2 Ag RApid 08/03 Negative Subjective Information Pt continues to have good PO intakes of 75-100% of meals and no dietary issues as of this time. Per nephrology, plan for Perma cath placement on Saturday night as the pt has requested. RD noted elevated BG. Will continue to monitor. Current Diet Order/Nutrition Support: CCHO, renal x12 days Pertinent Medications Culturelle, Nepro-cap/nephrovite, SSHumuLINR, Imodium, Zofran, protonix, Lovenox Pertinent Labs 08/15 BG 131H, POC BG 124H, BUN 35H, Cre 4.25H Skin Integrity Comment: Gregory scale: 20; no PIs noted per EMR review Current % PO Good (75-100%) ---85% average of 13 meals. Estimated Energy Expenditure (kcals/day) 7042-8038 kcal/day (30-35 kcal/kg Adj IBW for HD needs) Estimated Protein Required (g/day) 72-78 gm/day (1.2-1.3 gm/kg Adj IBW for CKD, HD needs) Estimated Fluid Required (l/day) Per physician d/t CHF/CKD Problem/Etiology/Signs/Symptoms Altered nutrition-related labs related to endocrine and renal dysfunction as evidenced by abnormal BUN, CRE, BG, and POC BG lab values. *modified 08/15 Unintentional wt gain related to fluid shifts as evidenced by possible 21# wt gain within 2-3 months, and Dx of CHF and fluid overload. *ongoing, but downtrending Nutrition-knowledge deficit related to renal therapeutic diet as evidenced by pt report. *resolved, diet education provided by RD on 08/05 Expected Outcomes/Goals - Monitor appetite and PO intakes w/ goal of pt meeting at least 80% of estimated nutritional needs, labs trending WNL, normal GI function, and skin integrity/wt maintenance Dietitian Recommendations * Recommend continuing CCHO, renal diet Follow Up Mod Risk: F/U in 3-5 days
--- NOTE | 2020-08-15 14:05 | NUR ---
Dietitian Recommendations * Recommend continuing CCHO, renal diet Please see Nutrition F/U note for details. SHILPI, RD
--- NOTE | 2020-08-15 15:31 | NUR ---
PATIENT RESTING IN BED, SLEEPING, BREATHING EVEN AND UNLABORED. WILLCONT TO MONITOR
[2020-08-15 16:47] VITALS: BP_SYST 139
[2020-08-15 19:00] VITALS: BP_SYST 179
--- NOTE | 2020-08-15 19:15 | NUR ---
change of shift.pt.presents quiescent affect;calm,resting viewing tv programming.pt.presents central line;rt.inj:hemo-dialysis access:w pig tail iv;luiods access. intact;patent. pt.utilizing the fw-walke w/in access of the pt.pt.presents iv access intact;patent iv lock.no c/o pain,nausea.general status stable.respiratory status stable;unlabored@room air.call light/telephone w/in access of the pt.
--- NOTE | 2020-08-15 19:17 | NUR ---
closing notes, pt has been stable the whole shift, no c/o pain, no sob, no fever. endorsed to night nurse.
[2020-08-15 20:00] VITALS: BP_SYST 179
--- NOTE | 2020-08-15 20:00 | NUR ---
pt.assessed.v/s assessed values note b/p status elevated.to review the emar med-list r/e;bp medications.no c/o pain,nausea. i have apprised the pt.that snacks/beverages are available w/in the shift.no requests posited@this hour.pt.capable to ambulate utilizing the fw-walker w/in access of the pt.general status stable.respiratory status stable;unlabored.call light/telephone w/in access of the pt.
--- NOTE | 2020-08-15 20:30 | NUR ---
i have assessed the blood glucose value 144mg/dl.i have apprised the pt.of the blood glucose value.the sliding scale parameters for the administration of the insulin coverage initiates@201mg/dl.i have re-iterated to the pt.no insulin to administered per the sliding scale parameters.
[2020-08-15] MEDS: ENOXAPARIN SODIUM 30 MG/0.3 ML SYRINGE SUBCUT SCH (20:47)
--- NOTE | 2020-08-15 21:00 | NUR ---
2100p medications administered.pt.capable to ingest the po medications w/out difficulty.pt.had requested a snack. i have provided aleisha crackers.
--- NOTE | 2020-08-15 22:00 | NUR ---
pt.assessed.pt.presents quiescent affect;calm,resting.pt.had requested blankets.i have provided the blankets.no additional requests posited@this hour.no c/o pain,nausea.fw-walker w/in access of the pt.pt.capable to reposition self.call light/ telephone placed w/in access of the pt.
[2020-08-16] VITALS: BP_SYST 157
--- NOTE | 2020-08-16 | NUR ---
pt.assessed.v/s assessed values w/in normal limits.no c/o pain,nausea.no requests posited@this hour.pt.capable to reposition self.general status stable.respiratory status stable;unlabored.call light/telephone placed w/in access of the pt.
--- NOTE | 2020-08-16 02:00 | NUR ---
pt.assessed.pt.presents quiescent affect;calm,somnolent.per flacc pain mgx pt.absent facial grimaces/body posturing. general status stable.respiratory status stable;unlabored.fw-walker,call light/telephone w/in access of the pt.
--- NOTE | 2020-08-16 04:00 | NUR ---
pt.assessed.pt.presents quiescent affect calm,somnolent.per flacc pain mgx pt.absent facial grimaces/body posturing. pt.capable to reposition self.general status stable.respiratory status stable;unlabored.call light/telephone placed w/in access of the pt.
--- NOTE | 2020-08-16 06:26 | NUR ---
pt.assessed.i have weighed the pt.2/t renal status:chf hx.blood glucose assessed value;147mg/dl.no c/o pain/nausea.pt.capable to reposition self.call light/telephone placed w/in access of the pt.
[2020-08-16 07:28] LABS: BASOPHILS # (AUTO) 0.1 K/uL (0.0-0.2); EOSINOPHILS # (AUTO) 0.4 K/uL (0.0-0.4); EOSINOPHILS % (AUTO) 7.1 % (0.0-4.0); HEMATOCRIT 28.7 % (36-48); HEMOGLOBIN 9.8 g/dL (12.0-16.0); LYMPHOCYTES # (AUTO) 1.2 K/uL (1.0-5.5); LYMPHOCYTES % (AUTO) 18.9 % (20.5-51.5); MEAN CORPUSCULAR HEMOGLOBIN 30 pg (27-31); MEAN CORPUSCULAR HGB CONC 34 % (32-36); MEAN CORPUSCULAR VOLUME 87 fL (79.0-98.0); MONOCYTES # (AUTO) 0.6 K/uL (0.0-1.0); MONOCYTES % (AUTO) 10.4 % (1.7-9.3); NEUTROPHILS # (AUTO) 3.9 K/uL (1.8-7.7); NEUTROPHILS % (AUTO) 62.6 % (40.0-70.0); PLATELET COUNT (AUTO) 167 K/uL (130-430); RED CELL DISTRIBUTION WIDTH 15.1 % (9.0-15.0); WHITE BLOOD COUNT (AUTO) 6.2 K/uL (4.8-10.8)
[2020-08-16 07:41] LABS: ALBUMIN 2.4 g/dL (3.4-4.8); CALCIUM 9.2 mg/dL (8.4-11.0); CREATININE 4.49 mg/dL (0.55-1.30); POTASSIUM 3.8 mmol/L (3.5-5.1); TOTAL BILIRUBIN 0.3 mg/dL (0.0-1.0)
[2020-08-16 08:00] VITALS: BP_SYST 173
--- NOTE | 2020-08-16 09:47 | NUR ---
Discharge Planning: DCP followed up with Dewey at [facility] (f [phone] p [phone]) [facility] the facility admission is out sick, Dewey will forward referral. DCP to follow up Addendum: 08/16/20 at 1430 by Shirley Elise DP Patient is set up for HD Dialysis at [facility] [id number] [place] [id number] chair time TT 9:30am.
[2020-08-16] MEDS: LACTOBACILLUS RHAMNOSUS GG 1 CAP CAPSULE PO SCH ×2 (10:07→20:34)
[2020-08-16] MEDS: PANTOPRAZOLE SODIUM 40 MG TAB PO SCH (10:07)
[2020-08-16] MEDS: CARVEDILOL 6.25 MG TABLET (COREG) PO SCH ×2 (10:08→20:35)
[2020-08-16] MEDS: NEPHROVITE, (FOLIC ACID/VITAMIN B COMP W-C 1 TAB) PO SCH (10:09)
[2020-08-16] MEDS: GABAPENTIN 100 MG CAPSULE PO SCH ×3 (10:09→20:34)
[2020-08-16] MEDS: calcitrioL 0.25 MCG CAPSULE PO SCH (10:11)
[2020-08-16] MEDS: LOSARTAN POTASSIUM 50 MG TABLET (COZAAR) PO SCH ×2 (10:14→20:34)
--- NOTE | 2020-08-16 11:05 | NUR ---
CARE TAKEN OVER, DANGLING, JUST FINISHED EATING BREAKFAST , ALERT, ORIENTED, APPROPRIATE. Janet PLACEMENT WILL BE PLACED TOMORROW SAT, " THAT IS WHAT i WAS TOLD BY A DR KHUSHBU PALMER, " NOW GETTING DIALYSIS
[2020-08-16 11:32] VITALS: BP_SYST 159
--- NOTE | 2020-08-16 11:55 | NUR ---
DC PLANNING Received call from Dewey @ [facility], needs CXR r/o TB, TB Gold, or PPD in order to clear pt for admission. States will also need the HD cath placement report after done tomorrow. Pt will be set up for appt after receive the info for T//Sat @ 2636. Addendum: 08/16/20 at 1345 by Jenifer Jackson RN Called & informed Dr Dotson of above & gave ph order for CXR r/o TB.
[2020-08-16] MEDS ORDERED: TUBERCULIN,PURIF.PROT.DERIV. 0.1 ML SYR ID ONE (13:45)
[2020-08-16] MEDS ORDERED: HEPARIN SODIUM,PORCINE 5,000 UNITS/ML VIAL SUBCUT SCH (14:00)
--- NOTE | 2020-08-16 15:18 | NUR ---
FINISHED HER DIALYSIS UNEVENTFULLY. 2.5LITER OUT, " FELT MUCH BETTER TODAY AFTER DIALYSIS" NOW AWAITING CHEST XRAY 2 VIEW, TO R/O TB , HAS DISCHARGE PLANNING, CM TO ARRANGE OUTPATIENT DIALYSIS
[2020-08-16 15:38] VITALS: BP_SYST 165
--- NOTE | 2020-08-16 19:30 | NUR ---
OPENING NOTES RECEIVED REPORT FROM DAY SHIFT RN. PT RESTING IN BED, ALERT & ORIENTED X4. BREATHING EVEN AND UNLABORED TO ROOM AIR. IV ON LEFT FA 22G INTACT, SL. NO SIGNS OF INFILTRATION NOTED. RIJ JOSE CATH INTACT. CALL LIGHT WITHIN REACH. SIDE RAILS UP X3. SAFETY PRECAUTIONS MAINTAINED. WILL CONTINUE TO MONITOR.
[2020-08-16 20:00] VITALS: BP_SYST 151
--- NOTE | 2020-08-16 20:20 | NUR ---
SPOKE TO DR. HAQ SPOKE TO DR. HAQ REGARDING SCHEDULED MEDICATION LOVENOX AT 2100. DR. HAQ STATED TO HOLD LOVENOX MEDICATION AT THIS TIME DUE TO PROCEDURE TOMORROW (TUNNELED HD PERM-A-CATH) IN THE MORNING.
--- NOTE | 2020-08-16 20:34 | NUR ---
MEDICATION PASS SCHEDULED MEDICATIONS ADMINISTERED ORDERED. DISCUSSED MEDICATIONS ACTION AND POTENTIAL SIDE EFFECTS. PT VERBALIZED UNDERSTANDING. BREATHING EVEN AND UNLABORED TO ROOM AIR. NO SIGNS OF RESPIRATORY DISTRESS NOTED. BED LOCKED IN LOWEST POSITION. CALL LIGHT WITHIN REACH. SIDE RAILS UP X3. SAFETY PRECAUTIONS IN PLACE. WILL CONTINUE TO MONITOR.
[2020-08-16] MEDS: ENOXAPARIN SODIUM 30 MG/0.3 ML SYRINGE SUBCUT SCH (20:37)
[2020-08-16] MEDS: INSULIN REGULAR, HUMAN 100 UNITS/ML, 10 ML VIAL (humuLIN R) SUBCUT PRN (21:32)
--- NOTE | 2020-08-16 23:15 | NUR ---
RN ROUNDS PT RESTING IN BED, WATCHING TV. CHEST RISE AND FALL SYMMETRICAL. NO SIGNS OF RESPIRATORY DISTRESS NOTED. PT KD ANY PAIN AT THIS TIME. CALL LIGHT WITHIN REACH. BED LOCKED IN LOWEST LEVEL. SAFETY PRECAUTIONS MAINTAINED. WILL CONTINUE TO MONITOR.
[2020-08-17] VITALS (8 sets, daily range): BP systolic 152–177
[2020-08-17] MEDS: cloNIDine HCL 0.1 MG TABLET PO PRN ×2 (00:17→13:25)
--- NOTE | 2020-08-17 06:53 | NUR ---
CLOSING NOTES PT RESTING IN BED. BREATHING EVEN AND UNLABORED TO ROOM AIR. IV ON LEFT FA 22G INTACT, SL. NO SIGNS OF INFILTRATION NOTED. RIJ JOSE CATH INTACT. CALL LIGHT WITHIN REACH. SIDE RAILS UP X3. SAFETY PRECAUTIONS MAINTAINED. ALL NEEDS ARE MET THROUGHOUT SHIFT. WILL CONTINUE TO MONITOR UNTIL ENDORSE TO DAY SHIFT RN.
[2020-08-17] MEDS: calcitrioL 0.25 MCG CAPSULE PO SCH (09:00)
[2020-08-17] MEDS ORDERED: NACL 0.9% 1,000 ML IV SCH (11:45)
[2020-08-17] MEDS ORDERED: HYDROmorphone 1 MG INJ. 1 MG/ML AMPUL IVP PRN ×2 (11:45)
[2020-08-17] MEDS ORDERED: ONDANSETRON HCL 4 MG/2 ML VIAL IVP PRN (11:45)
[2020-08-17] MEDS: EPOETIN ALFA 10,000 UNITS/ML VIAL SUBCUT SCH (13:20)
[2020-08-17] MEDS: LACTOBACILLUS RHAMNOSUS GG 1 CAP CAPSULE PO SCH ×2 (13:22→22:02)
[2020-08-17] MEDS: PANTOPRAZOLE SODIUM 40 MG TAB PO SCH (13:22)
[2020-08-17] MEDS: LOSARTAN POTASSIUM 50 MG TABLET (COZAAR) PO SCH ×2 (13:22→22:08)
[2020-08-17] MEDS: NEPHROVITE, (FOLIC ACID/VITAMIN B COMP W-C 1 TAB) PO SCH (13:22)
[2020-08-17] MEDS: GABAPENTIN 100 MG CAPSULE PO SCH ×3 (13:23→22:02)
[2020-08-17] MEDS: CARVEDILOL 6.25 MG TABLET (COREG) PO SCH ×2 (13:24→22:09)
--- NOTE | 2020-08-17 13:53 | NUR ---
1400. back from OR to the floor, alert, oriented and complained of pain, on the site where PERMA Cath insertion, Dilaudid 0.5mg ivp given right away for pain, the site cdi, covered with transparent. took all meds, and lunch offered. resting, daughter Lilian made aware of her mother's condition.
--- NOTE | 2020-08-17 16:43 | NUR ---
Discharge Planning: DCP faxed Dewey at [facility] (f [phone] p [phone]) Chest xray and cath placement DCP to follow up fax was received
[2020-08-17] MEDS: MORPHINE 4 MG/ML INJ. SYRINGE IVP PRN ×2 (17:00→23:12)
--- NOTE | 2020-08-17 19:20 | NUR ---
OPENING NOTES PATIENT RESTING, NO SIGNS OF ACUTE RESPIRATORY DISTRESS NOTED. IV SITE PATENT, DRESSINGS C/D/I. SURGICAL DRESSING TO RIGHT NECK INTACT, NO DRAINAGE, NO ODOR NOTED. RIGHT UPPER CHEST PERMACATH IN PLACE, NO DRAINAGE, NO ODOR NOTED. CALL LIGHT WITHIN REACH, BED ALARM OFF PER PATIENT REQUEST AND PROPER DEMONSTRATION OF CALL LIGHT DEMONSTRATED. BED AT LOWEST POSITION. WILL CONTINUE TO MONITOR.
--- NOTE | 2020-08-17 21:10 | NUR ---
PATIENT TALKING TO FAMILY ON PHONE, NO SIGNS OF DISTRESS NOTED. PATIENT STATES THAT PAIN IS TOLERABLE AT THIS TIME. SCHEDULED MEDICATIONS AND SANDWICH PROVIDED TO PATIENT. WILL CONTINUE TO MONITOR.
--- NOTE | 2020-08-17 22:20 | NUR ---
PATIENT AMBULATES TO THE RESTROOM WITH STEADY GAIT WITH A WALKER. NO SIGNS OF PAIN OR DISTRESS NOTED. WILL CONTINUE TO MONITOR.
[2020-08-18] VITALS: BP_SYST 157
--- NOTE | 2020-08-18 01:45 | NUR ---
PATIENT RESTING, NO SIGNS OF DISTRESS NOTED. CALL LIGHT WITHIN REACH, WILL CONTINUE TO MONITOR.
[2020-08-18] MEDS: MORPHINE 4 MG/ML INJ. SYRINGE IVP PRN (06:19)
--- NOTE | 2020-08-18 06:46 | NUR ---
CLOSING NOTES PATIENT RESTING, HOB ELEVATED, WATCHING NEWS. IV SITE PATENT, DRESSINGS C/D/I, PAIN MEDICATIONS PROVIDED, PATIENT TOLERATED WELL. CALL LIGHT WITHIN REACH, PATIENT USED CALL LIGHT THROUGHOUT SHIFT. DRESSINGS TO RIGHT NECK CLEAN, NO DRAINAGE, NO ODOR NOTED. RIGHT UPPER CHEST PERMACATH SITE, STILL SOURCE OF PAIN, BUT PATIENT MOVES RIGHT ARM FREELY AND SITE CLEAN, DRY, AND INTACT, NO DRAINAGE NOTED. BED ALARM ON, BED AT LOWEST POSITION. ALL NEEDS MET THROUGHOUT SHIFT. WILL ENDORSE CARE TO ONCOMING SHIFT.
--- NOTE | 2020-08-18 07:31 | NUR ---
AM ROUNDS: PATIENT RESTING ON THE BED. RECEIVED REPORT FROM NIGHT NURSE JUMANA. CALL LIGHT WITH IN REACH BED LOCKED AT LOWEST POSITION. NEEDS ATTENDED TO.
[2020-08-18 07:48] LABS: CALCIUM 9.1 mg/dL (8.4-11.0); CREATININE 4.11 mg/dL (0.55-1.30); PHOSPHORUS 4.8 mg/dL (2.7-4.5); POTASSIUM 3.8 mmol/L (3.5-5.1)
[2020-08-18 07:50] LABS: BASOPHILS # (AUTO) 0.1 K/uL (0.0-0.2); BASOPHILS % (AUTO) 0.7 % (0.0-2.0); EOSINOPHILS # (AUTO) 0.4 K/uL (0.0-0.4); EOSINOPHILS % (AUTO) 5.5 % (0.0-4.0); HEMATOCRIT 29.9 % (36-48); HEMOGLOBIN 10.2 g/dL (12.0-16.0); LYMPHOCYTES # (AUTO) 1.1 K/uL (1.0-5.5); LYMPHOCYTES % (AUTO) 13.5 % (20.5-51.5); MEAN CORPUSCULAR HEMOGLOBIN 30 pg (27-31); MEAN CORPUSCULAR HGB CONC 34 % (32-36); MEAN CORPUSCULAR VOLUME 87 fL (79.0-98.0); MONOCYTES # (AUTO) 0.7 K/uL (0.0-1.0); MONOCYTES % (AUTO) 9.4 % (1.7-9.3); NEUTROPHILS # (AUTO) 5.6 K/uL (1.8-7.7); NEUTROPHILS % (AUTO) 70.9 % (40.0-70.0); PLATELET COUNT (AUTO) 172 K/uL (130-430); RED BLOOD CELL COUNT(AUTO) 3.43 MIL/uL (4.2-6.2); RED CELL DISTRIBUTION WIDTH 15.3 % (9.0-15.0); WHITE BLOOD COUNT (AUTO) 7.9 K/uL (4.8-10.8)
[2020-08-18] MEDS: LACTOBACILLUS RHAMNOSUS GG 1 CAP CAPSULE PO SCH (08:44)
[2020-08-18] MEDS: CARVEDILOL 6.25 MG TABLET (COREG) PO SCH (08:48)
[2020-08-18] MEDS: PANTOPRAZOLE SODIUM 40 MG TAB PO SCH (08:48)
[2020-08-18] MEDS: GABAPENTIN 100 MG CAPSULE PO SCH ×2 (08:48→15:30)
[2020-08-18] MEDS: NEPHROVITE, (FOLIC ACID/VITAMIN B COMP W-C 1 TAB) PO SCH (08:51)
[2020-08-18] MEDS: LOSARTAN POTASSIUM 50 MG TABLET (COZAAR) PO SCH ×2 (08:58→17:30)
[2020-08-18 09:00] VITALS: BP_SYST 151
--- NOTE | 2020-08-18 09:00 | NUR ---
TRANSFER CARE: TRANSFER CARE TO [facility],PATIENT IN STABLE CONDITION.
--- NOTE | 2020-08-18 09:30 | NUR ---
NOTES ASSUMED CARE FROM THE PREVIOUS NURSE, PATIENT WAS ASLEEP, MORNING MEDS WAS ALREADY GIVEN. AWAITING FOR HEMODIALYSIS. PERMA CATH WITH DRESSING INTACT BUT SATURATED WITH OLD BLOOD, NO BLEEDING NOTED AT THIS TIME. POST JOSE CATH REMOVAL ON RIGHT NECK, DRESSING INTACT.
--- NOTE | 2020-08-18 11:49 | NUR ---
HIGH ALERT NOTE: Called Dr. Palmer back at [phone] identified within the medical roster to verify physician authenticity.
[2020-08-18 12:00] VITALS: BP_SYST 151
--- NOTE | 2020-08-18 12:00 | NUR ---
HEMODIALYSIS STARTED ON HEMODIALYSIS.
--- NOTE | 2020-08-18 14:12 | NUR ---
Discharge Planning: EVELIN followed up with Dewey at [facility] (f [phone] p [phone]) Dewey received chest xray and cath placement report. ABIMAELP made CM aware [facility] needs to have confirmation on discharge to set patient up for Saturday treatment.
--- NOTE | 2020-08-18 14:30 | NUR ---
SEEN BY DR. FLORENCE FOR DISCHARGE TODAY, ON HEMODIALYSIS, WILL GO HOME TONIGHT.
[2020-08-18] MEDS: calcitrioL 0.25 MCG CAPSULE PO SCH (15:29)
[2020-08-18 16:11] VITALS: BP_SYST 150
[2020-08-18 16:14] VITALS: BP_SYST 112
[2020-08-18] MEDS ORDERED: GLIP2.5T3 PO (16:37)
[2020-08-18] MEDS ORDERED: CALC0.258 PO (16:37)
[2020-08-18] MEDS ORDERED: CAT.1 PO (16:38)
[2020-08-18] MEDS ORDERED: LOSA50TA28 PO (16:40)
[2020-08-18] MEDS ORDERED: NEPH PO (16:40)
[2020-08-18 16:49] VITALS: BP_SYST 158
--- NOTE | 2020-08-18 18:30 | NUR ---
DISCHARGE NOTES/CHF PROTOCOL DR FLORENCE WANTS THE APPOINTMENT IN 2 WEEKS, OFFICE WILL BE CLOSE NEXT WEEKS DUE TO HOLIDAY, DAUGHTER WILL CALL THE OFFICE OF DR FLORENCE THIS WEEK TO MAKE AN APPOINTMENT. DISCHARGE INSTRUCTIONS GIVEN TO PATIENT, INCLUDING HOME MEDS, FOLLOW UP APPT.HOME HEALTH FOLLOW UP. INSTRUCTED RE- PERMA CATH CARE, TO LEAVE DRESSING DRY AND INTACT. PERMA CATH INTACT, NO BLEEDING, JOSE CATH SITE DRESSING DRY AND INTACT. DISCHARGE PATIENT VIA WHELCHAIR, NOT IN DISTRESS, PERMA CATH INTACT. PATIENT MADE AWARE ABOUT HER HEMODIALYSIS SCHEDULED DAYS.
[2020-08-19] MEDS ORDERED: HEPARIN SODIUM, PORCINE 10,000 UNITS/ 10 ML VIAL MC PRN (09:00)
== END 2020-08-18 18:30 | disposition home health service (06) | DRG 291 ==
LOC: SED 19:53 → STU 23:22 → SMU 08-11 15:31 → STU 08-18 04:37
PROVIDERS: ADMIT Internal Medicine; ATTEND Internal Medicine
PROC: 02HV33Z Insertion of Infusion Device into Superior Vena Cava, Percutaneous Approach (ICD-10-PCS; principal; 2020-08-10)
PROC: B548ZZA Ultrasonography of Superior Vena Cava, Guidance (ICD-10-PCS; 2020-08-10)
PROC: 5A1D70Z Performance of Urinary Filtration, Intermittent, Less than 6 Hours Per Day (ICD-10-PCS; 2020-08-10)
PROC: 5A1D70Z Performance of Urinary Filtration, Intermittent, Less than 6 Hours Per Day (ICD-10-PCS; 2020-08-11)
PROC: 5A1D70Z Performance of Urinary Filtration, Intermittent, Less than 6 Hours Per Day (ICD-10-PCS; 2020-08-13)
PROC: 5A1D70Z Performance of Urinary Filtration, Intermittent, Less than 6 Hours Per Day (ICD-10-PCS; 2020-08-16)
PROC: 02PYX3Z Removal of Infusion Device from Great Vessel, External Approach (ICD-10-PCS; 2020-08-17)
PROC: 0JH63XZ Insertion of Tunneled Vascular Access Device into Chest Subcutaneous Tissue and Fascia, Percutaneous Approach (ICD-10-PCS; 2020-08-17)
PROC: 05H533Z Insertion of Infusion Device into Right Subclavian Vein, Percutaneous Approach (ICD-10-PCS; 2020-08-17)
PROC: B5161ZA Fluoroscopy of Right Subclavian Vein using Low Osmolar Contrast, Guidance (ICD-10-PCS; 2020-08-17)
PROC: 5A1D70Z Performance of Urinary Filtration, Intermittent, Less than 6 Hours Per Day (ICD-10-PCS; 2020-08-18)
DX: I13.0 Hypertensive heart and chronic kidney disease with heart failure and stage 1 through stage 4 chronic kidney disease, or unspecified chronic kidney disease (principal); E43 Unspecified severe protein-calorie malnutrition; I50.41 Acute combined systolic (congestive) and diastolic (congestive) heart failure; N04.9 Nephrotic syndrome with unspecified morphologic changes; N18.4 Chronic kidney disease, stage 4 (severe); Z68.41 Body mass index [BMI] 40.0-44.9, adult; E11.22 Type 2 diabetes mellitus with diabetic chronic kidney disease; E66.01 Morbid (severe) obesity due to excess calories; E78.5 Hyperlipidemia, unspecified; E88.09 Other disorders of plasma-protein metabolism, not elsewhere classified; F32.9 Major depressive disorder, single episode, unspecified; D63.8 Anemia in other chronic diseases classified elsewhere; F41.9 Anxiety disorder, unspecified; Z20.828 Contact with and (suspected) exposure to other viral communicable diseases; Z91.041 Radiographic dye allergy status; Z87.441 Personal history of nephrotic syndrome; Z88.8 Allergy status to other drugs, medicaments and biological substances; Z91.19 Patient's noncompliance with other medical treatment and regimen
CPT/HCPCS: 36415; 71045; 71250-TC; 76000; 76376; 76700-TC; 76770; 80048; 80053; 80061; 80076; 81000-TC; 82575-TC; 82607; 82962; 83036; 83540-TC; 83550-TC; 83690-TC; 83880; 84100-TC; 84156; 84439; 84443-TC; 84484; 84550-TC; 85025; 85610-TC; 85730-TC; 86580; 86886; 86900; 86901; 87040-TC; 87081; 87086; 87340; 93005; 93306; 93970; 96374; 97116-GP; 97530-GP; 99285; C1750; C1751; C9113; G0378; J0360; J0696; J0885; J1170; J1644; J1650; J1815; J1940; J1956; J2270; J7030; J7060; P9046; Q0162

== ENCOUNTER 2020-08-23 11:44 | Emergency (ER) | payer OTHER, MEDICARE, SELFPAY ==
[~2020-08-23] VITALS: Ht 152.4 cm; Wt 95.3 kg
[~2020-08-23 11:44] MED LIST changes: +ASPI-1393 PO; +ATOR20TA64 PO; +CALC0.258 PO; +CAT.1 PO; +GABA-529 PO; -GLIP10TA11 PO; +GLIP2.5T3 PO; -GLYB2.5T4 PO; -HYDR-1189 PO; +LOSA50TA28 PO; +NEPH PO; +PRO40 PO
[2020-08-23 11:55] VITALS: BP_SYST 216
--- NOTE | 2020-08-23 11:55 | NUR ---
BROUGHT INTO OUTSIDE ER TENT, TRIAGED AND WILL ASSUME CARE
--- NOTE | 2020-08-23 12:00 | NUR ---
DR RAMEY OUT TO OUTSIDE TENT FOR EVALUATION
--- NOTE | 2020-08-23 13:10 | NUR ---
Patient given written and verbal discharge instructions and verbalizes understanding. ER MD discussed with patient the results and treatment provided. Patient in stable condition. ID arm band removed. Rx of NONE given. Patient educated on pain management and to follow up with PMD. Pain Scale 0/10. Opportunity for questions provided and answered. Medication side effect fact sheet provided.
== END 2020-08-23 13:10 | disposition home or self-care (01) ==
LOC: SED 11:44
DX: N18.9 Chronic kidney disease, unspecified (principal); I10 Essential (primary) hypertension; E11.9 Type 2 diabetes mellitus without complications; Z79.899 Other long term (current) drug therapy; Z79.82 Long term (current) use of aspirin; Z88.8 Allergy status to other drugs, medicaments and biological substances; Z20.828 Contact with and (suspected) exposure to other viral communicable diseases
CPT/HCPCS: 36415; 99283

== ENCOUNTER 2021-08-09 19:41 | Emergency (ER) | payer OTHER, MEDICARE, SELFPAY ==
[2021-08-09 19:59] VITALS: BP_SYST 162
[2021-08-09 20:51] LABS: BASOPHILS % (AUTO) 0.5 % (0.0-2.0); EOSINOPHILS # (AUTO) 0.1 K/uL (0.0-0.4); EOSINOPHILS % (AUTO) 0.7 % (0.0-4.0); HEMATOCRIT 33.7 % (36-48); HEMOGLOBIN 11.7 g/dL (12.0-16.0); LYMPHOCYTES # (AUTO) 0.4 K/uL (1.0-5.5); LYMPHOCYTES % (AUTO) 4.3 % (20.5-51.5); MEAN CORPUSCULAR HEMOGLOBIN 31 pg (27-31); MEAN CORPUSCULAR HGB CONC 35 % (32-36); MEAN CORPUSCULAR VOLUME 89 fL (79.0-98.0); MONOCYTES # (AUTO) 0.1 K/uL (0.0-1.0); MONOCYTES % (AUTO) 1.7 % (1.7-9.3); NEUTROPHILS # (AUTO) 8.1 K/uL (1.8-7.7); NEUTROPHILS % (AUTO) 92.8 % (40.0-70.0); PLATELET COUNT (AUTO) 192 K/uL (130-430); RED BLOOD CELL COUNT(AUTO) 3.77 MIL/uL (4.2-6.2); RED CELL DISTRIBUTION WIDTH 15.1 % (9.0-15.0); WHITE BLOOD COUNT (AUTO) 8.7 K/uL (4.8-10.8)
[2021-08-09 21:03] LABS: ANION GAP 10 (5-15); CHLORIDE 101 mmol/L (98-107); CREATININE 5.75 mg/dL (0.55-1.30); GLUCOSE 265 mg/dL (70-99); POTASSIUM 4.4 mmol/L (3.5-5.1); SODIUM SERUM 140 mmol/L (136-145); UREA NITROGEN, BLOOD 43 mg/dL (8-21)
[2021-08-09 21:06] LABS: ALANINE AMINOTRANSFERASE 74 U/L (12-78); ALBUMIN 3.2 g/dL (3.4-4.8); AMYLASE 49 U/L (0-100); ASPARTATE AMINOTRANSFERASE 137 U/L (10-37); LACTATE DEHYDROGENASE 259 U/L (81-234); LIPASE 354 U/L (73-393); TOTAL BILIRUBIN 1.1 mg/dL (0.0-1.0)
--- NOTE | 2021-08-09 21:08 | NUR ---
PT PLACED IN GOWN, BED IN LOWEST POSITION AND LOCKED, SIDERAIL UP X 1
--- NOTE | 2021-08-09 21:08 | NUR ---
# 20 gauge angiocath placed to RAC. Use of asceptic technique. Opsite placed over site. Blood return noted. Flushed with 10 cc of normal saline. No evidence of infiltration noted. Patient tolerated well.
--- NOTE | 2021-08-09 21:09 | NUR ---
PT COMING IN WITH C/O SEVERE ABD PAIN SINCE 4PM, ALSO HAVING NAUSEA WITH 1 X VOMIT, DENIES DIARRHEA. ABD SOFT BUT EXTREMELY PAINFUL UPON PALPATION, BS WNL. DENIES ANY HISTORY OF GI PROBLEMS. HAS TEMP DIALYSIS SHUNT TO RIGHT UPPER CHEST, WITH NEW AV SHUNT, UNUSED AT THIS TIME, ON LEFT ARM. DIALYSIS T, TH, S. ALLERGY - IODINE HX ; HTN, DIABETIC, DIALYSIS
[2021-08-09 21:10] LABS: GFR AFRICAN AMERICAN 9 mL/min (>90)
[2021-08-09] MEDS ORDERED: HYDR-3917 PO (21:24)
[2021-08-09] MEDS ORDERED: IBUP-1969 PO (21:24)
[2021-08-09 21:25] LABS: C-REACTIVE PROTEIN QUANT < 0.2 mg/dL (0-0.5)
[2021-08-09] MEDS ORDERED: KETOROLAC TROMETHAMINE 30 MG VIAL IM ONE (21:30)
[2021-08-09] MEDS ORDERED: ONDANSETRON 4 MG ODT TAB PO ONE (21:30)
[2021-08-09 21:31] LABS: PROTHROMBIN TIME 10.2 SECS (9.5-12.5)
--- NOTE | 2021-08-09 21:54 | NUR ---
PT UP AND AMBULATED TO RESTROOM WITH ASSISTANCE. PT STATES ABD PAIN NOW 5/10
--- NOTE | 2021-08-09 22:06 | NUR ---
PT AMBULATED BACK TO BED BY HERSELF, STEADY GAIT NOTED.
[2021-08-09] MEDS ORDERED: HYDROcodone/ACETAMIN 5-325 MG TAB (NORCO/ VICODIN) PO ONE (22:45)
[2021-08-09 23:01] VITALS: BP_SYST 158
--- NOTE | 2021-08-09 23:05 | NUR ---
Patient given written and verbal discharge instructions and verbalizes understanding. ER MD discussed with patient the results and treatment provided. Patient in stable condition. ID arm band removed. IV catheter removed intact and dressing applied, no active bleeding. Rx of NORCO AND MOTRIN given. Patient educated on pain management and to follow up with PMD. Pain Scale 6. Opportunity for questions provided and answered. Medication side effect fact sheet provided.
== END 2021-08-09 23:05 | disposition home or self-care (01) ==
LOC: SED 19:41
DX: K80.50 Calculus of bile duct without cholangitis or cholecystitis without obstruction (principal); I10 Essential (primary) hypertension; E11.9 Type 2 diabetes mellitus without complications; Z88.8 Allergy status to other drugs, medicaments and biological substances; Z79.899 Other long term (current) drug therapy
CPT/HCPCS: 36415; 74176; 76376; 80053; 82150; 83605; 83615; 83690; 84484; 85025; 85610; 85730; 86140; 93005; 96372; 99285; J1885; Q0162